=== PATIENT | male | born 1950 | race Caucasian/White ===

== ENCOUNTER 2016-08-02 15:06 | Inpatient (IN) | payer OTHER ==
--- NOTE | 2016-08-02 15:37 | EKG Report ---
Test Performed on : 08/02/2016 3:30:07 PM Test Reason : SOB Blood Pressure : / mmHG Vent. Rate : 096 BPM Atrial Rate : 096 BPM P-R Int : 180 ms QRS Dur : 096 ms QT Int : 382 ms P-R-T Axes : 051 -36 090 degrees QTc Int : 482 ms Normal sinus rhythm. Possible Left atrial enlargement Left axis deviation Incomplete right bundle branch block Left ventricular hypertrophy Nonspecific ST and T wave abnormality Prolonged QT Abnormal ECG No previous ECGs available Unconfirmed Result
[2016-08-02 15:53] LABS: MANUAL DIFF NEEDED? NO
[2016-08-02 15:55] LABS: BASO% 0.8 % (0.0-0.8); EOS# 0.33 X1000 (0.0-0.7); EOS% 3.3 % (0.0-10.0); HEMATOCRIT 38.5 % (42.0-52.0); HEMOGLOBIN 12.5 g/dL (14.0-18.0); LYMPH# 3.18 X1000 (1.2-3.4); LYMPH% 31.4 % (20.5-51.1); MCH 30.6 PG (27-31); MCHC 32.5 g/dL (33-37); MCV 94.1 FL (81-99); MONO# 0.91 X1000 (0.11-0.59); MPV 10.4 FL (7.4-10.4); NEUT% 55.5 % (42.2-75.2); PLT 322 X1000 (130-400); RBC 4.09 XMIL (4.7-6.1)
[2016-08-02] MEDS ORDERED: LASIX IV ONE (15:58)
--- NOTE | 2016-08-02 16:02 | ED EKG INTERP ---
EKG Interpretation - EKG Time of EKG reading by physician:: 15:30 EKG Read and Signed by:: Steven Flynn EKG Interpretation (*Must complete 3 of following elements*): Abnormal Rate: 86 Rhythm: NSR Wenden: left QRS: RBB (incomplete), LVH ST Wave: non-specific ST changes
[2016-08-02 16:03] LABS: INR 1.08; PROTIME 11.5 Seconds (9.2-11.7); PTT 27.6 Seconds (22.0-36.0)
--- NOTE | 2016-08-02 16:24 | CONSULTATION ---
DATE OF CONSULTATION: 08/02/2016 HISTORY OF PRESENT ILLNESS: Mr. Zac Bailey is a 65-year-old gentleman with Aortic stenosis mitral regurgitation, hypertension. He is followed up routinely at the [facility]. He has aortic stenosis, the exact dimensions not known at the present time. He underwent a transesophageal echocardiogram recently to evaluate for mitral regurgitation as well. He has an appointment to follow up and see the allocations clerk at the [facility] in [place] tomorrow. He was there yesterday with some suggestion of urinary tract infection and had to see a urologist there. He had hematuria, but otherwise he has had no further hematuria. He, for the last 3 days, says he has been having increasing shortness of breath and had some features of paroxysmal nocturnal dyspnea as well and has orthopnea. Complains of having dizziness, but no chest pain. Does not complain of any palpitations. There is no syncope. REVIEW OF SYSTEMS: A 14 point review of system was done with: GI System: There is no nausea, vomiting or diarrhea. There is no history of hematemesis or melena. Central nervous system: No focal weakness to suggest a costovertebral angle tenderness. System: There is no dysuria or hematuria. PAST MEDICAL HISTORY: 1. Bicupid Aortic valvewith Valve area of 1.2 S cm. Severe MR by EILEEN done at [facility] EF 50. Had cardiac cath done there , no records Followed up at the [facility]. Valve replacement is contemplated. 2. Recent urine infection. 3. Hypertension. MEDICATIONS: 1. Aspirin 81 mg a day. 2. Losartan 50 mg a day. ALLERGIES: He is not known to be allergic to any medications. HABITS: He does not smoke. There is no history of alcohol abuse. PHYSICAL EXAMINATION: Vital Signs: Blood pressure was 120/68. Cardiovascular system: Normal jugular venous pressure. First and second heart sounds heard. There is ejection systolic murmur. Respiratory system: Fine by inspiratory crepitations bilateral. Abdomen: Soft , nontender. There was no guarding or rigidity. Bowel sounds were heard. Central nervous system: Alert and was moving all 4 extremities. Extremities: Examination of his extremities revealed trace edema. DATA: Electrocardiogram revealed normal sinus rhythm. There was no ST changes to suggest ischemia. Nonspecific ST changes were noted. ASSESSMENT AND PLAN: 1. Mr. Zac Bailey is a 65-year-old gentleman with Bicuspid aortic stenosis, Severe MR on EILEEN per report, is followed up at the [facility] and has an appointment to see the [facility] allocations clerk for contemplation and planning of valve replacement. However, for the last 3 days he has been getting increasing shortness of breath and also paroxysmal nocturnal dyspnea , and orthopnea . On examination, he has features of heart failure. Given this, all his lab results are pending, we will put him on Lasix 40 mg intravenous once a day. We will give him Lasix 40 now. He takes Lasix 40 mg daily. 2. We will continue with his aspirin and losartan. 3. I called the [facility] there on diversion. We will touch base with the [facility] in the morning. In addition he also has an outpatient appointment to see the allocations clerk at the [facility] in the morning. The appointment is at 1 p.m. and, if he feels better and if lab values are unremarkable, we could potentially have him go there as an outpatient as well. However, I will contact the [facility] again to speak with the allocations clerk there in the morning. 4. We will also get an echocardiogram to asses cardiac / valvular function and rule out UT by cardiac enzymes. Thank you for the consult. MAYRA
[2016-08-02 16:34] LABS: CALCIUM 8.9 mg/dL (8.8-10.2); MAGNESIUM 2.3 mg/dL (1.5-2.7); POTASSIUM 3.6 mmol/L (3.5-5.1); TOTAL BILIRUBIN 1.03 mg/dL (0.20-1.00); TOTAL PROTEIN 6.6 g/dL (6.3-8.3)
--- NOTE | 2016-08-02 17:39 | Diag Imaging Result Document ---
PROCEDURE NAME: CHEST-PORTABLE - 08/02/2016 PORTABLE CHEST: COMPARISON: 07/16/2016. FINDINGS: There is stable mild cardiomegaly. There is mild prominence of central markings which appears to be chronic. There is no consolidation, pleural effusion, or pneumothorax identified. IMPRESSION: Stable mild cardiomegaly. No other evidence of acute disease.
[2016-08-02] MEDS ORDERED: ZOFRAN IV PRN (17:45)
[2016-08-02] MEDS ORDERED: TYLENOL PO PRN (17:45)
[2016-08-02 18:33] LABS: IRON SATURATION 24 %; TIBC 282 ug/dL; TOTAL IRON 69 ug/dL (53-167); UNBOUND IRON 213 ug/dL (112-346)
[2016-08-02 18:51] LABS: FERRITIN 317 ng/mL (30-400)
--- NOTE | 2016-08-02 18:54 | HISTORY AND PHYSICAL ---
PRIMARY CARE PROVIDER: Through the [facility]. PRIMARY UROLOGIST: Also through the [facility]. CARDIOLOGY: Through the [facility]. Has been seen by Dr. Haro. CHIEF COMPLAINT: Shortness of breath. HISTORY OF PRESENT ILLNESS: Mr. Zac Bailey is a 65-year-old male with a past medical history of congestive heart failure, aortic stenosis in need of an AVR with also now also mitral valve involvement, hypertension, obstructive sleep apnea. He actually has obstructive sleep apnea testing supposed to be scheduled this Saturday and a history of CKD. Mr. Bailey states that for the last 2-3 weeks he started having some nocturnal spells of smothering and then over the last 2-3 days primarily at night when he is sleeping, which he sleeps in an inclined bed, he is having spells of where he is smothering which wakes him up and he feels very short of breath. He has had more of a decrease in his energy. He has had a cough with essentially clear phlegm. Denies chest pain. Denies fever or chills. He does state that earlier this month he came for blood in his urine. He was seen by the [facility] yesterday and had received antibiotics prior to that for urinary tract infection. There is apparently a plan for sometime in August for them to do a urethral scope. Currently no blood in his urine that he can see. He denies burning during urination. He was seen by Dr. Haro in ER and plans were for Lasix for volume overload. Echocardiogram was performed at the bedside. Results are not reported yet. We will admit him to the medical floor. He is in no acute distress. His vital signs are stable. We will continue to follow. Apparently there is supposed to be a followup appointment with a gift wrapper at the [facility] in [place] tomorrow. Other symptoms that he had complained of was dizziness but no palpitations or syncope noted. Will continue to follow along. PAST MEDICAL HISTORY: Aortic stenosis, possibly now with mitral valve involvement, congestive heart failure, systolic in nature and chronic, hypertension, obstructive sleep apnea but does not wear a CPAP. Will be having retesting possibly this Saturday. Posttraumatic stress disorder. He has got a metal in his forehead that he received when he was in the [place] war. CKD stage 3. Hard of hearing. Wears bilateral hearing aids. SURGICAL HISTORY: Appendectomy, splenectomy, incisional hernia repair after his splenectomy, a circumcision and urethral clean out. SOCIAL HISTORY: He is a [place] vet x2. Denies tobacco abuse. He quit smoking in 1980. Denies alcohol or illicit drug use. FAMILY HISTORY: Grandfather had a CVA and father had cancer. REVIEW OF SYSTEMS: Fourteen point review of systems were complete and all were negative except for those mentioned in the above HPI. ALLERGIES: No known drug allergies. HOME MEDICATIONS: Aspirin enteric-coated 81 mg p.o. daily. Cozaar 25 mg p.o. daily. Lasix 40 mg p.o. daily. LABORATORY DATA: White blood cells 10,000, hemoglobin 12, hematocrit 38.6, platelet count 322,000. INR 1.08. Sodium 141, potassium 3.6. BUN 26, creatinine is 1.7. GFR 40. Glucose 151. Calcium 8.9, magnesium 2.3. Total bilirubin is 1.03. AST 17, ALT 18. CK is 66, troponin 0.035. ProBNP is 5969. Total protein 6.6, albumin 4.0. Urinalysis pending. IMAGING: Echocardiogram not resulted yet. EKG normal sinus rhythm, rate of 86 and a QTc of 482. PHYSICAL EXAMINATION: VITAL SIGNS: Temperature is 98.0 degrees, heart rate 91, respiratory rate 16, blood pressure 125/89, O2 saturation 96% on room air. Height 6 feet 1 inch tall, 241 pounds. BMI 31.8. GENERAL: Mr. Bailey is a 65-year-old male, in no acute distress. Some mild increased work of breathing with activity noted. HEENT: Atraumatic, normocephalic. Pupils equal, round, reactive to light. Extraocular movements are intact. NECK: No JVD or carotid bruits noted. CARDIOVASCULAR: S1, S2. Regular rate and rhythm. No rubs or gallops. There is a about a 2/6 systolic ejection murmur. PULMONARY: Clear to auscultation. Bilateral breath sounds with crackles in the bases and mild expiratory wheeze noted. No accessory muscle use. No work of breathing. GI: Soft, nontender, nondistended. Positive bowel sounds x4. NEUROLOGIC: Alert and oriented x4. Moves all extremities equally. EXTREMITIES: Trace edema in the lower ankles. +2 dorsalis and radial pulses. SKIN: Warm, dry, intact. ASSESSMENT AND PLAN: 1. Acute on chronic systolic congestive heart failure with volume overload, severe aortic stenosis and now with mitral valve involvement. Echo pending report. He received IV Lasix in the ER and will receive it twice daily. Dr. Haro is following. He is going to continue on Cozaar and aspirin. [facility]. Do daily weights. 2. Hypertension. Continue with Cozaar. 3. Obstructive sleep apnea. Apparently has an appointment on Saturday for a recheck of his obstructive sleep apnea. He does not wear BiPAP. 4. Recent hematuria. He is being seen by Urology and they plan on doing a urethral scope in August. Currently he denies hematuria. Urinalysis is pending. White blood cells normal. He has had a history where they have had to clean the urethra out. 5. CKD stage 3. We will do urine studies to rule out KAREEM. On the he had a 1.5 creatinine. It is up to 1.7 today. He is receiving Lasix so we will have to keep a close eye on that. BUN on the was 20 and today it is 26. 6. DVT prophylaxis. For now we will do sequential compression devices given his recent hematuria. He does have a mildly lower hemoglobin and hematocrit of 12.5 and 38.9 and back on the , it was 13.1 and. 39.2. 7. Anemia possibly from bladder or urethra. Given his recent history of hematuria we will do anemia labs. 8. Hyperglycemia. He denies history of diabetes. Will do a hemoglobin A1c in the morning. 9. Hyperbilirubinemia likely secondary to congestive heart failure. Will continue to trend. 10. GI prophylaxis. Proton pump inhibitor. Dictated by FORREST Adan for Sarthak Brambila MD
[2016-08-03] MEDS: LASIX IV SCH ×2 (05:53→17:28)
[2016-08-03] MEDS: PROTONIX PO SCH (06:10)
[2016-08-03 07:01] LABS: MANUAL DIFF NEEDED? NO
[2016-08-03 07:22] LABS: EOS# 0.38 X1000 (0.0-0.7); EOS% 3.8 % (0.0-10.0); HEMATOCRIT 39.9 % (42.0-52.0); HEMOGLOBIN 12.9 g/dL (14.0-18.0); IMM GRAN# 0.02 X1000 (0.0-0.04); IMM GRAN% 0.2 % (0.0-0.5); LYMPH# 2.86 X1000 (1.2-3.4); LYMPH% 28.7 % (20.5-51.1); MCH 30.5 PG (27-31); MCHC 32.3 g/dL (33-37); MCV 94.3 FL (81-99); MONO# 0.82 X1000 (0.11-0.59); MONO% 8.2 % (1.7-9.3); MPV 10.7 FL (7.4-10.4); NEUT% 58.1 % (42.2-75.2); PLT 319 X1000 (130-400); RBC 4.23 XMIL (4.7-6.1)
[2016-08-03 07:46] LABS: FREE T4 1.39 ng/dL (0.93-1.70)
--- NOTE | 2016-08-03 07:46 | EKG Report ---
Test Performed on : 08/03/2016 06:18:19 AM Test Reason : chf Blood Pressure : / mmHG Vent. Rate : 098 BPM Atrial Rate : 098 BPM P-R Int : 168 ms QRS Dur : 094 ms QT Int : 384 ms P-R-T Axes : 054 -41 061 degrees QTc Int : 490 ms Normal sinus rhythm. Possible Left atrial enlargement Left axis deviation Prolonged QT Abnormal ECG When compared with ECG of 02-AUG-2016 15:30, (Unconfirmed) Incomplete right bundle branch block is no longer present Nonspecific T wave abnormality, improved in Lateral leads Confirmed by Star Hwang DO ([id number]) on 08/05/2016 4:14:00 PM
[2016-08-03 07:47] LABS: CALCIUM 9.3 mg/dL (8.8-10.2); HEMOGLOBIN A1C 5.2 % (4.8-6.0); MAGNESIUM 2.3 mg/dL (1.5-2.7); POTASSIUM 4.1 mmol/L (3.5-5.1)
--- NOTE | 2016-08-03 07:54 | Diag Imaging Result Document ---
PROCEDURE NAME: CHEST-2 VIEWS - 08/03/2016 2 VIEWS OF THE CHEST: FINDINGS: There is pleural fluid particularly on the right. There is mild interstitial pulmonary edema. The left ventricle appears to be enlarged. IMPRESSION: Mild pulmonary edema and pleural effusions.
[2016-08-03] MEDS: ASPIRIN EC PO SCH (08:55)
[2016-08-03] MEDS: COZAAR PO SCH (08:55)
--- NOTE | 2016-08-03 15:32 | ECHO REPORT ---
ORDER DATE: 08/02/2016 ECHOCARDIOGRAPHIC MEASUREMENTS: 1. Interventricular septum 1.4 2. Left ventricular posterior wall 1.4, diastolic diameter 6, left atrium 6, aorta 3.4. 3. There is moderate to severe left atrial enlargement. 4. Left ventricle is dilated with reduced systolic function. Estimated ejection fraction of 30%- 35%. 5. Aortic valve leaflets were sclerosed, calcified, all leaflets not well visualized. 6. There is mitral annular calcification. 7. Tricuspid valve is normal. 8. There is severe eccentric mitral regurgitation. 9. There is mild tricuspid regurgitation. Peak velocity across the tricuspid valve was 3.3 m/sec. Pulmonary artery systolic pressure of 58-60 mmHg. There is pulmonary arterial hypertension. 10. Peak velocity across the aortic valve was 4 m/sec with a peak gradient of 64 mmHg, mean gradient of 40 mmHg. Aortic valve area by planimetry was 0.9 cm2. There is severe aortic stenosis associated with mild aortic regurgitation. 11. There is no pericardial effusion or obvious intracardiac mass or thrombus seen. 12. There is mild right ventricular dilatation.
--- NOTE | 2016-08-03 17:40 | PROGRESS NOTE ---
DATE: 08/03/2016 SUBJECTIVE: Patient is feeling fine. Definitely less shortness of breath. OBJECTIVE: Vitals: Temperature 97.9 degrees, heart rate 87, respiratory rate 18, blood pressure 121/74, O2 saturation 100% on room air. General Examination: This is a 65-year-old male lying in bed in no acute distress. HEENT: Head is normocephalic, atraumatic. Anicteric sclerae and pale conjunctivae. Mucous membranes moist. Neck: Supple. No JVD noted. No carotid bruits. No lymphadenopathy. No thyromegaly. Cardiovascular: S1, S2 heard. No murmurs, gallops, rubs. Regular rate and rhythm. Respiratory: Few crackles in both bases. Patient not using any accessory muscles or having work of breathing. Abdomen: Soft, nontender to palpation. Bowel sounds present. No organomegaly. Extremities: No clubbing, cyanosis, or edema. Peripheral pulses present in both legs. Neurological: Patient is alert and oriented x3. Able to move 4 extremities. Cranial nerves 2-12 grossly normal. LABORATORY DATA: White cell count 9.99, hemoglobin 12.9, hematocrit 39.9, platelets 319,000. BMP unremarkable except BUN 25, creatinine 1.7. ASSESSMENT AND PLAN: 1. Acute on chronic systolic heart failure. 2. Severe aortic stenosis with bivalvular aortic valve. 3. Severe mitral regurgitation. 4. Hypertension. 5. Obstructive sleep apnea. 6. Chronic kidney disease stage 3. 7. Anemia of chronic disease. 8. Deep vein thrombosis prophylaxis. 9. Hyperbilirubinemia. PLAN: At this time this patient is doing fine. Definitely he has developed acute on chronic systolic congestive heart failure secondary to severe aortic stenosis that is being going on for at least a couple years that he had this problem and waiting for a valve replacement. In this case we are going to see this patient in the hospital. The basic plan is to try to transfer this patient to [facility] to have this problem taken care of there. In the meantime will continue with Lasix and clinically this patient is improving. Also blood pressure is under control. This point will continue with the same management.
[2016-08-04] MEDS: PROTONIX PO SCH (06:09)
[2016-08-04 06:47] LABS: CALCIUM 8.6 mg/dL (8.8-10.2); MAGNESIUM 2.1 mg/dL (1.5-2.7); POTASSIUM 3.7 mmol/L (3.5-5.1)
[2016-08-04] MEDS: COZAAR PO SCH (08:39)
[2016-08-04] MEDS: LASIX IV SCH (08:39)
[2016-08-04] MEDS: ASPIRIN EC PO SCH (08:39)
[2016-08-04 11:03] LABS: URINE CULTURE NEEDED? NO; URINE MICRO REVIEW NEEDED? NO; URINE SOURCE CLEAN CATCH
[2016-08-04 11:16] LABS: UR CREAT RANDOM 30.6 mg/dL (14-26)
[2016-08-04 11:20] LABS: BILIRUBIN URINE NEGATIVE (NEGATIVE); BLOOD URINE NEGATIVE (NEGATIVE); COLOR YELLOW; GLUCOSE URINE NEGATIVE (NEGATIVE); LEUKOCYTES URINE NEGATIVE (NEGATIVE); NITRITE URINE NEGATIVE (NEGATIVE); PROTEIN URINE NEGATIVE (NEGATIVE); SP GRAVITY URINE 1.007; TURBIDITY URINE CLEAR (CLEAR); UROBILINOGEN URINE NORMAL (NORMAL)
[2016-08-04 11:22] LABS: UR EPITHELIAL CELLS <10 /HPF (<10); URINE BACTERIA NEGATIVE /HPF; URINE RBC <10 /HPF (<10); URINE WBC <10 /HPF (<10)
--- NOTE | 2016-08-04 12:15 | PROGRESS NOTE ---
DATE: 08/04/2016 SUBJECTIVE: Mr. Bailey reports he is doing well today. He has been more active and is less short of breath. He does have some discomfort I believe in his left ankle that is consistent with previous episodes of gout. PHYSICAL EXAMINATION: He is afebrile. His heart rates seem to be predominantly in the 80s to 90s. His blood pressures are in the 110s to 120 systolic with diastolics in the 60s to 80s. His weight documented today was 241 pounds 11 ounces. He had a 245 pounds and 11 ounces on the 5th. His I's and O's are -2.7 L for the course of the hospitalization. However he has very little intake documented on those studies. General: He is in no acute distress. He is a very pleasant white male. He has some mild complaints of left ankle pain. Cardiovascular: He sounds to be in a regular rate and rhythm. He has a 2/6 systolic murmur consistent with aortic stenosis. He has no lower extremity edema. He has warm and well perfused lower extremities. Chest: Exam sounds relatively clear. No increased work of breathing. Abdomen: Soft, nontender, nondistended. He has no obvious organomegaly. Skin Exam: Warm and dry throughout. PERTINENT LABORATORY DATA: His telemetry has been unremarkable showing sinus rhythm with occasional PVCs. His sodium today is 140 with a potassium of 3.7, his BUN is 28, creatinine 1.7 which is stable from yesterday and his magnesium is 2.1. His proBNP yesterday was 5918 with an admission on the of 5969. ASSESSMENT: 1. Systolic heart failure. 2. Severe aortic stenosis. 3. Severe mitral regurgitation. 4. Likely gouty arthritis flare. PLAN: I will initiate some colchicine today. He can take up to b.i.d. p.r.n. Review of his echo shows dilatation of the LV and severe dilatation of the left atrium and mild bordering on moderate LVH. His EF is 30-35%. He has a peak gradient across the valve of 64 with a mean of 40 across the aortic valve with planimetry of 0.9. He also has a suggestion of severe eccentric mitral regurgitation. I have placed a call into the [facility] to speak with the on-call detective chief. [facility] but [facility] is not a bed diversion, it is apparently associated with unsafe roads in the [place] area. Hopefully, we can get the patient transferred to an appropriate facility for definitive planning on addressing his mitral and aortic valves. We will continue with diuresis. I have instructed the patient on a 1.5 L fluid restriction. I will hold off any adjustments in his medications presently because he seems hemodynamically titrated.
[2016-08-04] MEDS: SOLU-MEDROL IV SCH (14:00)
[2016-08-04] MEDS: COLCRYS PO PRN ×2 (14:00→21:09)
--- NOTE | 2016-08-04 14:26 | PROGRESS NOTE ---
DATE: 08/04/2016 SUBJECTIVE: Patient reports moderate pain around the 1st toe in the left foot. He thinks that this because he had similar symptoms before. He is definitely less short of breath. OBJECTIVE: Vital Signs: Temperature 97.6 degrees, heart rate 89, respiratory rate 16, blood pressure 120/60, O2 saturation 98% on room air. General Examination: This is a 65-year-old male lying in bed in no acute distress. HEENT: Head is normocephalic, atraumatic. Neck: Supple. No JVD. No carotid bruits. Cardiovascular: S1, S2 heard with systolic murmur in the aortic area 3/6 in intensity. No gallops or rubs. Respiratory: Clear bilaterally to auscultation. No work of breathing or using accessory muscles. Abdomen: Soft, nontender to palpation. Bowel sounds present. No organomegaly. Extremities: No clubbing, cyanosis, or edema. Peripheral pulses present in both legs. Neurological: Patient alert, oriented x3. Able to move 4 extremities. Cranial nerves 2-12 grossly normal. LABORATORY DATA: BMP is unremarkable except creatinine 1.7. ASSESSMENT AND PLAN: 1. Acute on chronic systolic heart failure. 2. Severe aortic stenosis with bibasilar aortic valve, severe mitral regurgitation. 3. Hypertension. 4. Obstructive sleep apnea. 5. Chronic kidney disease stage 3. 6. Anemia chronic disease. 7. Possible gouty attack. 8. Hyperbilirubinemia. PLAN: 1. At this time we are going to continue with the same management in terms of diuresis. Patient responded to therapy. Less shortness of breath. We are basically trying to transfer this patient to [facility] because the ultimate answer to his problem is to have double valve replacement. 2. For gout attack considering his renal dysfunction we are going to use Solu-Medrol 40 mg IV q.12 hours and he is already taking Protonix IV 40 mg daily. 3. For hypertension and anemia chronic disease we are going to continue basically the same management.
[2016-08-05] MEDS: SOLU-MEDROL IV SCH ×2 (02:12→12:08)
[2016-08-05] MEDS: PROTONIX PO SCH (06:49)
[2016-08-05 07:26] LABS: CALCIUM 9.2 mg/dL (8.8-10.2)
[2016-08-05] MEDS: COZAAR PO SCH (08:41)
[2016-08-05] MEDS: ASPIRIN EC PO SCH (08:41)
[2016-08-05] MEDS: LASIX IV SCH (08:41)
[2016-08-05] MEDS: COLCRYS PO PRN (08:41)
--- NOTE | 2016-08-05 14:27 | PROGRESS NOTE ---
DATE: 08/05/2016 SUBJECTIVE: Ms. Bailey reports he feels a little bit better today regarding his gout pain in his ankle. He has been ambulatory on the floor. PHYSICAL EXAMINATION: Vital signs: He is afebrile. His heart rate is 76 this morning with a blood pressure of 109/74. Generally: He is in no acute distress. Cardiovascular: He sounds to be in a regular rate and rhythm. I do not hear any significant murmurs other than a very faint systolic murmur somewhat throughout the precordium. He has no lower extremity edema. He has warm and well perfused extremities. Chest: Exam sounds relatively clear to auscultation bilaterally. He has no increased work of breathing. Abdomen: Soft, nontender. DATA: His current telemetry has shown sinus rhythm. He has occasional PACs and PVCs during the course of the stay. His sodium is 141, potassium 4, BUN 28, creatinine 1.5; this is down from 28 and 1.7. His proBNP today was 4,143 which is down from 5,969 on admit. ASSESSMENT: 1. Severe aortic stenosis. 2. Acute systolic heart failure. 3. Severe mitral regurgitation. PLAN: The patient continues to diurese and seems to be doing well. His gout has responded to colchicine. Otherwise he continues to do well. We are working on arranging transfer to the [facility] in [place] to continue to try to obtain a definitive evaluation for interventions on his aortic and mitral valves.
--- NOTE | 2016-08-05 14:40 | PROGRESS NOTE ---
DATE: 08/05/2016 SUBJECTIVE: Patient reports that pain in the 1st toe left foot is getting definitely much better. He denies any chest pain or shortness of breath. OBJECTIVE: Vital Signs: Temperature 97.6 degrees, heart rate 76, respiratory rate 20, blood pressure 109/74, O2 saturation 98% on room air. General Examination: This is a 65-year-old male lying in bed in no acute distress. HEENT: Head is normocephalic, atraumatic. Anicteric sclerae and pale conjunctivae. Neck: Supple. No JVD noted. No carotid bruits. No lymphadenopathy. Cardiovascular: S1, S2 heard with systolic murmur in the aortic area 3/6 intensity radiating to the neck. No gallops or rubs. Respiratory: Clear bilaterally to auscultation. No work of breathing or using accessory muscles. Abdomen: Soft, nontender to palpation. Bowel sounds present. No organomegaly. Extremities: No clubbing, cyanosis, or edema. Peripheral pulses present in both legs. Neurological: Patient alert, oriented x3. Able to move 4 extremities. Cranial nerves 2-12 grossly normal. LABORATORY DATA: The BMP shows creatinine 1.5 and BUN 28, rest of the exam remarkable. ASSESSMENT AND PLAN: 1. Acute on chronic systolic heart failure. 2. Severe aortic stenosis. 3. Severe mitral regurgitation. 4. Hypertension. 5. Obstructive sleep apnea. 6. Chronic kidney disease stage 3. 7. Anemia chronic disease. 8. First left toe gouty attack. PLAN: 1. At this time clinically the patient is doing good. The patient is still receiving furosemide for this acute on chronic systolic heart failure and patient is responding very well. We are still trying to send this patient to [facility] but apparently there is no beds. Will keep trying to transfer him over there. 2. For gouty attack, patient is on Solu-Medrol 40 q.12 and Protonix IV daily 40 mg. At this point will continue with the same management. We would prefer to not provide any colchicine considering his renal dysfunction. 3. For hypertension will continue basically with the same management.
--- NOTE | 2016-08-05 15:30 | DISCHARGE SUMMARY ---
ADMISSION DATE: 08/02/2016 DISCHARGE DATE: 08/06/2016 DISCHARGE DIAGNOSES: 1. Severe aortic stenosis with bicuspid aortic valve. 2. Severe mitral regurgitation. 3. Congestive heart failure secondary to severe aortic stenosis with bicuspid aortic valve. 4. Hypertension. 5. Gouty attack, under treatment. 6. Obstructive sleep apnea. 7. Chronic kidney disease, stage 3. CONSULTATIONS: Kashmir Haro MD from Cardiology. HOSPITAL COURSE: This is a 65-year-old male with past medical history of congestive heart failure secondary to severe bicuspid aortic stenosis in need of valvular replacement with now also mitral valve involvement, hypertension, and obstructive sleep apnea. The patient reports that he was noticing some nocturnal spells in which he got short of breath. He reports feeling and tired. He also was having a cough with some clear phlegm. He denied any chest pain, fever, or chills. The patient has been seen by Dr. Haro in the ER and he recommended to admit this patient to the hospital. HOSPITAL COURSE: During his hospitalization here he was started on aggressive diuretic treatment and he responded to the therapy. Upon my examination, he is feeling fine during the last previous days. Our general plan is to try to transfer this patient to the [facility] in [place] to get a cardiac surgery done on him. Unfortunately, the hospital has been on diversion and we expect to have this hospital accept this patient tomorrow or the day after. During his hospitalization here he developed gouty attack with pain in the 1st toe of the left foot. So, he was given Solu-Medrol 40 mg IV q.12 h. and since then, he is feeling fine. At this point, the patient is stable and waiting for a room in the [facility]. The patient will be transferred in stable condition. DISCHARGE PHYSICAL EXAMINATION: Vital Signs: Temperature 97.6 degrees, heart rate 74, respiratory rate 20, blood pressure 117/61, O2 saturation 98% on room air. General: This is a 65-year-old male, lying in bed, in no acute distress. HEENT: Head is normocephalic, atraumatic. Anicteric sclerae and pale conjunctivae. Mucous membranes moist. Pupils equal, round, reactive to light and accommodation. Neck: Supple. No JVD noted. No carotid bruit noted. No lymphadenopathy. No thyromegaly. Cardiovascular: S1, S2 heard with ejection murmur in the aortic area 3/6 intensity that radiates to the neck. Respiratory: Clear bilaterally to auscultation. No work of breathing or using accessory muscles. Abdomen: Soft , nontender to palpation. Bowel sounds present. No organomegaly. Extremities: First toe of left foot is definitely less swollen and painful. Lower extremity peripheral pulses present in both legs. Neurological: Patient is alert and oriented x3. Able to move 4 extremities. Cranial nerves II through XII grossly normal. DISCHARGE DISPOSITION: Currently we are trying to send this patient to [facility] in [place] but also could be sent to [facility]. [facility]
[2016-08-05 16:27] VITALS: BP 121/79
== END 2016-08-05 17:09 | disposition short-term general hospital (02) | DRG 293 ==
LOC: ED 15:06 → 3N 17:27
PROVIDERS: ATTEND Internal Medicine
DX: I50.23 Acute on chronic systolic (congestive) heart failure (principal); N18.3 Chronic kidney disease, stage 3 (moderate); I12.9 Hypertensive chronic kidney disease with stage 1 through stage 4 chronic kidney disease, or unspecified chronic kidney disease; I08.0 Rheumatic disorders of both mitral and aortic valves; R73.9 Hyperglycemia, unspecified; M10.9 Gout, unspecified; G47.33 Obstructive sleep apnea (adult) (pediatric); D63.8 Anemia in other chronic diseases classified elsewhere; H91.93 Unspecified hearing loss, bilateral; F43.10 Post-traumatic stress disorder, unspecified; Z79.899 Other long term (current) drug therapy; Z79.82 Long term (current) use of aspirin; Z90.81 Acquired absence of spleen; Z87.891 Personal history of nicotine dependence; Z82.3 Family history of stroke; Z80.9 Family history of malignant neoplasm, unspecified
CPT/HCPCS: 36415; 71010; 71020; 80048; 80053; 80061; 81001; 82550; 82570; 82607; 82728; 82746; 83036; 83540; 83550; 83721; 83735; 83880; 83935; 84153; 84300; 84439; 84443; 84484; 85025; 85379; 85610; 85730; 93005; 93010; 93306; 96374; J1940; J2920

== ENCOUNTER 2019-11-11 10:03 | Inpatient (IN) ==
[2019-11-11] MEDS ORDERED: LASIX IV ONE ×2 (10:20→15:38)
--- NOTE | 2019-11-11 10:26 | PROVIDER DOCUMENTATION ---
HPI-Respiratory General - General Stated Complaint: FUILD BUILD UP,CHF,COUGHING Time Seen by Provider: 11/11/19 10:12 Source: patient, family Allergies/Adverse Reactions: Patient Allergies Allergy/AdvReac Type Severity Reaction Status Date / Time No Known Allergies Allergy Verified 08/02/16 15:47 Home Medications: Home Medication List Medication Instructions Recorded Confirmed Last Taken Type Aspirin [Aspirin EC] 81 mg PO DAILY 07/16/16 11/11/19 08/02/16 08:00 History Allopurinol 100 mg PO 4XDAY 11/11/19 11/11/19 Unknown History Apixaban [Eliquis] 5 mg PO BID 11/11/19 11/11/19 Unknown History Carvedilol [Coreg] 6.25 mg PO BID 11/11/19 11/11/19 Unknown History Doxazosin [Cardura] 2 mg PO DAILY 11/11/19 11/11/19 Unknown History Torsemide 20 mg PO BID 11/11/19 11/11/19 Unknown History - History of Present Illness-Resp Nature of Presenting Problem: Patient is a 68 yom who presents to the ED with his daughter who reports worsening SOB with 6 pound weight gain x 3 days. Hx of recent open heart sx with subsequent pacemaker placement after surgery due to A. Fib. (in August) at [facility]. Has had a mild productive cough with clear sputum as well. Denies chest pain, fever, or any other complaints. Pt non-toxic. Review of Systems - Adult - REVIEW OF SYSTEMS - ADULT Constitutional: reports: no symptoms reported Eyes: reports: no symptoms reported Ears, Nose, Mouth & Throat: reports: no symptoms reported Cardiovascular: reports: see HPI Respiratory: reports: see HPI Gastrointestinal: reports: no symptoms reported Genitourinary: reports: no symptoms reported Musculoskeletal: reports: no symptoms reported Integumentary: reports: no symptoms reported Neurological: reports: no symptoms reported Psychiatric: reports: no symptoms reported Endocrine: reports: no symptoms reported Hematologic/Lymphatic: reports: no symptoms reported Allergic/Immunologic: reports: no symptoms reported All Other Systems: Reviewed and Negative Past History - Adult - PAST MEDICAL HISTORY-ADULT Review of Records: reports: Old Records Reviewed, Nursing Assessment Review, Medications Reviewed, Social history reviewed & non-contributory. Major Childhood Illnesses: reports: denies history Cardiovascular: reports: CHF, HTN Respiratory: reports: sleep apnea Gastrointestinal: reports: denies history Obstetrical/Gynecological: reports: denies history Genitourinary: reports: denies history Musculoskeletal: reports: denies history Neurological: reports: denies history Psychiatric: reports: ptsd Endocrine/Immune: reports: denies history Other Conditions: reports: denies history - PRIOR SURGERIES/PROCEDURES Surgical/Procedure History: reports: recent surgery - IMMUNIZATION STATUS Childhood Immunizations: See Nurse Assessment Flu Vaccine: See Nurse Assessment - FAMILY HISTORY Family History: reviewed, not pertinent - SOCIAL HISTORY Smoking: non-smoker Physical Exam-General - PHYSICAL EXAM-ADULT Initial Vital Signs Reviewed: Yes - CONSTITUTIONAL General Appearance: alert, no apparent distress. negative: lethargic, slow to respond - EYES Eyes: PERRL/EOMI - HEAD, EARS, NOSE, MOUTH & THROAT HENMT: normocephalic/atraumatic - NECK Neck: full range of motion, supple, normal inspection - RESPIRATORY Respiratory: chest non-tender, no pleuratic chest pain, no respiratory distress, no accessory muscle use, decreased breath sounds - CARDIOVASCULAR Cardiovascular: regular rate, rhythm, JVD, other (2+ pitting edema noted to bilateral lower extremities) - GASTROINTESTINAL (ABDOMEN) Abdominal Exam: normal bowel sounds, soft, other (obese) - MUSCULOSKELETAL Back Exam: normal inspection Extremity: normal range of motion, non-tender - SKIN Integumentary: normal color, warm/dry. negative: cyanosis, diaphoresis, jaundice, mottled, pallor - NEUROLOGIC Neurologic: grossly normal, no motor/sensory deficits - PSYCHIATRIC Psych/Mental Status: normal mood/affect, normal thought content, normal thought process, oriented x 3 - HEART Score HEART Score: History: Moderately Suspicious HEART Score: ECG: Non-Specific Repolarization Disturbance/LBBB/PM HEART Score: Age: > or = 65 Years HEART Score: Risk Factors for Atherosclerotic Disease: > or = 3 Risk Factors or History of Atherosclerotic Disease HEART Score: Troponin: < or = Normal Limit Total HEART Score:: 6 Progress - PLAN OF CARE/RESULTS Progress/Plan/Lab Results: Vital Signs - 8 hr 11/11/19 10:52 Temperature 98.3 F Pulse Rate 85 Respiratory Rate 22 Blood Pressure 139/70 O2 Sat by Pulse Oximetry 97 Laboratory Results - last 24 hr 11/11/19 11/11/19 11/11/19 10:43 10:43 10:43 WBC 10.18 RBC 3.84 L Hgb 11.6 L Hct 37.7 L MCV 98.2 MCH 30.2 MCHC 30.8 L RDW Std Deviation 14.7 H Plt Count 303 MPV 10.9 H Immature Gran % (Auto) 0.2 Neut % (Auto) 62.1 Lymph % (Auto) 21.7 Walsh % (Auto) 10.2 H Eos % (Auto) 4.3 Baso % (Auto) 1.5 H Immature Gran # (Auto) 0.02 Neut # (Auto) 6.32 Lymph # (Auto) 2.21 Walsh # (Auto) 1.04 H Eos # (Auto) 0.44 Baso # (Auto) 0.15 PT INR PTT (Actin FS) Sodium Potassium Chloride Carbon Dioxide Anion Gap BUN Creatinine Estimated GFR/1.73 m2 BUN/Creatinine Ratio Glucose Calculated Osmolality Calcium Magnesium Total Bilirubin AST ALT Alkaline Phosphatase Creatine Kinase 73 Troponin T High Sens 44 H Elu-K-Utevxlavkjs Pept Total Protein Albumin Globulin Albumin/Globulin Ratio Plasma Lactate 11/11/19 11/11/19 11/11/19 10:43 10:49 10:49 WBC RBC Hgb Hct MCV MCH MCHC RDW Std Deviation Plt Count MPV Immature Gran % (Auto) Neut % (Auto) Lymph % (Auto) Walsh % (Auto) Eos % (Auto) Baso % (Auto) Immature Gran # (Auto) Neut # (Auto) Lymph # (Auto) Walsh # (Auto) Eos # (Auto) Baso # (Auto) PT INR PTT (Actin FS) Sodium 139 Potassium 4.0 Chloride 98 Carbon Dioxide 27 Anion Gap 14 BUN 28 H Creatinine 1.7 H Estimated GFR/1.73 m2 40 BUN/Creatinine Ratio 16 Glucose 133 H Calculated Osmolality 285 Calcium 9.1 Magnesium 2.2 Total Bilirubin 1.08 H AST 29 ALT 20 Alkaline Phosphatase 109 Creatine Kinase Troponin T High Sens Okv-T-Hdfunevjesg Pept 8233 H Total Protein 7.2 Albumin 3.6 Globulin 3.6 Albumin/Globulin Ratio 1.0 Plasma Lactate 1.7 11/11/19 10:49 WBC RBC Hgb Hct MCV MCH MCHC RDW Std Deviation Plt Count MPV Immature Gran % (Auto) Neut % (Auto) Lymph % (Auto) Walsh % (Auto) Eos % (Auto) Baso % (Auto) Immature Gran # (Auto) Neut # (Auto) Lymph # (Auto) Walsh # (Auto) Eos # (Auto) Baso # (Auto) PT 17.9 H INR 1.45 PTT (Actin FS) 26.9 Sodium Potassium Chloride Carbon Dioxide Anion Gap BUN Creatinine Estimated GFR/1.73 m2 BUN/Creatinine Ratio Glucose Calculated Osmolality Calcium Magnesium Total Bilirubin AST ALT Alkaline Phosphatase Creatine Kinase Troponin T High Sens Apu-G-Njrjnbvkqel Pept Total Protein Albumin Globulin Albumin/Globulin Ratio Plasma Lactate Orders Category Date Time Status Cardiac Monitoring DIRECTED Care 11/11/19 10:20 Active Isolation [Isolation Precautions Setup] NOW Care 11/11/19 11:45 Active NEWS Score 2-4:Order NEWS Lactate Series NOW Care 11/11/19 10:57 Active Nursing- MD Consult Request ROUTINE Care 11/11/19 10:58 Active Saline Loc NOW Care 11/11/19 10:20 Active MD [Physician/Provider Consults] Routine Cons 11/11/19 10:57 Ordered CHEST-1 VIEW [RAD] Stat Exams 11/11/19 10:23 Completed CBC WITH DIFF [HEME] Stat Lab 11/11/19 10:43 Completed CK PROFILE [SP CHEM] Stat Lab 11/11/19 10:43 Completed COMPREHENSIVE METABOLIC PANEL [CHEM] Stat Lab 11/11/19 10:49 Completed LACTATE, PLASMA [CHEM] Lab 11/11/19 14:00 Uncollected LACTATE, PLASMA [CHEM] Lab 11/11/19 17:00 Uncollected LACTATE, PLASMA [CHEM] Q3H Lab 11/11/19 10:43 Completed MAGNESIUM [CHEM] Stat Lab 11/11/19 10:49 Completed PRO B-NATRIURETIC PEPTIDE Stat Lab 11/11/19 10:49 Completed PROTIME WITH INR [COAG] Stat Lab 11/11/19 10:49 Completed PTT [COAG] Stat Lab 11/11/19 10:49 Completed TROPONIN T HIGH SENSITIVITY Stat Lab 11/11/19 10:43 Completed TROPONIN T HIGH SENSITIVITY Timed Lab 11/11/19 12:45 Uncollected Furosemide [Lasix] Med 11/11/19 10:20 Discontinued 60 mg IV NOW ONE EKG [EKG] Routine Ther 11/11/19 12:45 Ordered EKG [EKG] Stat Ther 11/11/19 10:19 Ordered Result Diagrams: 11/11/19 10:43 11/11/19 10:49 - REASSESSMENT Reassessment #1 Time Reassessed: 12:00 Status: other (Admitting [facility] paged. UOP approx. 100 cc since Lasix. Pt in agreement with plan to admit. Pt admitted to [facility] in stable condition.) - EKG 1 Time of EKG reading by physician:: 10:15 EKG Read and Signed by:: Leon Austin EKG Interpretation (*Must complete 3 of following elements*): Abnormal Rate: 86 Rhythm: paced rhythm ST Wave: normal - XRAY 1 XRAY Study: Chest ([facility] - [address], [address], [place] [address] [facility] - [address] [place] [address] Department of Imaging Patient: IRIS HERNANDEZ Date: 11/11/19#: [id number] : 9ADM Status: REG [facility]#: [id number] Age/Sex: 68/MRoom/Bed: Loc: ED Ordering Physician: Heike Thomas Family Physician: None,PCP Reason for Procedure: SOB, edema Signed EXAM: CHEST-1 VIEW 11/11/2019 HISTORY: SOB, edema TECHNIQUE: AP portable upright at 1049 COMMENT: There is alveolar opacity in the left lower lobe partially obscuring the hemidiaphragm and left heart border. There is blunting of the costophrenic angles bilaterally and ill-defined opacity is present in the right costophrenic angle. These findings were not present on 08/03/2016. There are sternotomy wires and there is a right sided pacemaker. There are aortic and mitral valve prostheses. None of these were present previously. IMPRESSION: Pulmonary edema and pleural effusions worse on the left than the right. Elec tronically signed by Joao Garcia 11/11/2019 11:06 AM 11/11/19 1106 Interpreting Physician: Joao Garcia MD Dictated Date/Time: 11/11/19 1105 cc: Heike Thomas; None,PCP) - CONSULTS/PCP/HOSPITALIST Notification #1 *Consult/PCP/Hospitalist*: Dr. Haro Time Discussed: 10:31 Reason/Comments: CHF, recent open heart sx and pacemaker placement Consult Disposition: Will see in ED (Dr. Haro saw and evaluated pt in the ED.) #2 Consult: ANGELIA Abraham COMPUTER SUPPORT TECHNICIAN Time Discussed: 12:38 Reason/Comments: admit- CHF exacerbation Consult Disposition: Will see in ED (Dr. Austin spoke with Leigh who accepted admission.), Admit Departure - Departure Date of Disposition Decision: 11/11/19 Time of Disposition Decision: 12:00 DIAGNOSIS: SOB (shortness of breath), Renal insufficiency Pulmonary edema Qualifiers: Chronicity: acute Qualified Code(s): J81.0 - Acute pulmonary edema CHF (congestive heart failure) Qualifiers: Heart failure type: unspecified Heart failure chronicity: acute on chronic Qualified Code(s): I50.9 - Heart failure, unspecified Disposition: ADMITTED INPATIENT 09 Certified Medical Emergency: Emergent Condition: Stable Referrals and Follow-Ups: None,PCP [Primary Care Provider] - - Critical Care Note This patient required my direct & personal management of CC.: No Attestation - Physician/ ROMAIN Attestation Patient care was provided by Advanced Practice Provider:: Yes Advanced Practice Provider:: Heike Thomas Advanced Practice Provider documentation review:: The Mid-level provider documentation, treatment plan and medical decision making was reviewed by the physician who agrees with all treatment and medical decision making by the MLP. The physician spent face to face time with patient:: Yes (Dr. Austin) Advanced Practice Provider documentation review:: Supervising physician onsite and consulted in the evaluation and care of this patient. The physician did have a face to face encounter with the patient.
[2019-11-11 11:06] LABS: BASO# 0.15 X1000 (0.0-0.2); BASO% 1.5 % (0.0-0.8); EOS# 0.44 X1000 (0.0-0.7); EOS% 4.3 % (0.0-10.0); HEMATOCRIT 37.7 % (42.0-52.0); HEMOGLOBIN 11.6 g/dL (14.0-18.0); IMM GRAN# 0.02 X1000 (0.0-0.04); IMM GRAN% 0.2 % (0.0-0.5); LYMPH# 2.21 X1000 (1.2-3.4); LYMPH% 21.7 % (20.5-51.1); MCH 30.2 PG (27-31); MCHC 30.8 g/dL (33-37); MCV 98.2 FL (81-99); MONO# 1.04 X1000 (0.11-0.59); MONO% 10.2 % (1.7-9.3); MPV 10.9 FL (7.4-10.4); NEUT# 6.32 X1000 (1.4-6.5); NEUT% 62.1 % (42.2-75.2); PLT 303 X1000 (130-400); RBC 3.84 XMIL (4.7-6.1); RDW 14.7 % (11.5-14.5); WBC 10.18 X1000 (4.8-10.8)
[2019-11-11 11:09] LABS: INR 1.45; PROTIME 17.9 Seconds (11.0-16.0); PTT 26.9 Seconds (22.3-41.8)
--- NOTE | 2019-11-11 11:09 | Diag Imaging Result Doc PS360 ---
EXAM: CHEST-1 VIEW 11/11/2019 HISTORY: SOB, edema TECHNIQUE: AP portable upright at 1049 COMMENT: There is alveolar opacity in the left lower lobe partially obscuring the hemidiaphragm and left heart border. There is blunting of the costophrenic angles bilaterally and ill-defined opacity is present in the right costophrenic angle. These findings were not present on 08/03/2016. There are sternotomy wires and there is a right sided pacemaker. There are aortic and mitral valve prostheses. None of these were present previously. IMPRESSION: Pulmonary edema and pleural effusions worse on the left than the right. Electronically signed by Joao Garcia 11/11/2019 11:06 AM
--- NOTE | 2019-11-11 11:24 | CARDIOLOGY CONSULTATION ---
DATE: 11/11/2019 HISTORY OF PRESENT ILLNESS: Mr. Bailey is a 68-year-old, gentleman who, for the last 3 days, has noticed increasing shortness of breath with pedal edema. Became short of breath and orthopneic. Came to the emergency room. He is admitted with heart failure. In the interim, he was on Lasix 40 mg a day prior to this. This was changed to torsemide 20 mg to be taken alternate days about a week ago and since this change, his weight has gone up and he has become more symptomatic. He was extremely orthopneic. Denies any chest pain. There are no palpitations or syncope. There is no history of fevers or chills. He has a productive cough which has been present since his surgery and has worsened in the last 2 weeks. He underwent surgery for valve replacement as listed below. REVIEW OF SYSTEMS: A 14-point review of systems was done. GI System: There is no history of nausea, vomiting, or diarrhea. Respiratory System: There is no history of hemoptysis. There is no history of hematemesis or melena. Central Nervous System: No focal weakness to suggest a CVA or TIA. Genitourinary System. There is no dysuria or hematuria. HOME MEDICATION LIST: Allopurinol 400 mg daily, Coreg 6.25 b.i.d., doxazosin 2 mg daily, enteric- coated aspirin 81 mg a day, Eliquis 5 b.i.d., and torsemide 20 mg every other day. PAST MEDICAL HISTORY: 1. Aortic and mitral valve replacement, bioprosthetic in July 2016 at [facility]. 2. 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 3. Underwent a redo aortic valve replacement and mitral valve replacement, both bioprosthetic, on 08/31/2019. 4. History of heart failure. 5. Postop atrial fibrillation, status post EILEEN cardioversion. 6. Dual Chamber Medtronic PPM. 7. Gout. 8. Hypertension. ALLERGIES: He is not allergic to any medication. However, Coumadin exacerbates his gout significantly. SOCIAL HISTORY: He does not smoke, does not drink. PHYSICAL EXAMINATION: Blood pressure was 139/78. Jugular venous pressure was elevated. First and second heart sounds were heard. Respiratory System: Examination revealed dullness at the base with bibasilar inspiratory crepitations. Abdomen was soft, obese. Bowel sounds were heard. Central Nervous System: Alert, oriented, was moving all 4 extremities. Examination of extremities revealed pitting edema up to his doan. HEENT: Atraumatic, normocephalic. Pupils were equal and reacting to light. Examination of Neck: Jugular venous pressure was distended. There was no lymphadenopathy. Trachea was central. He was tachypneic. Respiratory rate of 28 beats per minute. ASSESSMENT AND PLAN: Mr. Zac Bailey is a 68-year-old, gentleman who underwent a bioprosthetic valve replacement, aortic valve and mitral valve, on 08/24/2016. 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 Was treated extensively and underwent a redo aortic and mitral valve bioprosthetic placement at [facility] on 08/31/2019. He also had postoperative atrial fibrillation. Underwent cardioversion. Also had a permanent pacemaker implanted,dual chamber. He also has a history of hypertension and gout. Recently, his adjustments were made as far as his Lasix was concerned and changed to torsemide on every other day. He has had increasing shortness of breath, cough with expectoration for the last week with orthopnea. Came to the emergency room and is going to be admitted. RECOMMENDATIONS: 1. All lab work are pending. We will get a CBC, CMP, proBNP, serum magnesium level, in addition to cardiac enzymes. 2. We will get a chest x-ray. 3. We will give him Lasix 60 mg now and Lasix 40 mg IV twice daily. 4. Continue with his home medications. For anticoagulation therapy, on aspirin and Eliquis. 5. He has gout. Continue with allopurinol 400 mg daily. 6. Continue with beta blockers, 6.25 mg twice daily. 7. We will get an echocardiogram and interrogate his pacemaker. cc: Kashmir Haro MD [facility]
[2019-11-11 11:34] LABS: ALBUMIN 3.6 g/dL (3.5-5.0); CALCIUM 9.1 mg/dL (8.8-10.2); CREATININE 1.7 mg/dL (0.7-1.2); MAGNESIUM 2.2 mg/dL (1.5-2.7); TOTAL BILIRUBIN 1.08 mg/dL (0.20-1.00); TOTAL PROTEIN 7.2 g/dL (6.3-8.3)
--- NOTE | 2019-11-11 13:35 | EKG Report ---
Test Performed on : 11/11/2019 1:25:58 PM Test Reason : sob Blood Pressure : / mmHG Vent. Rate : 083 BPM Atrial Rate : 286 BPM P-R Int : 000 ms QRS Dur : 172 ms QT Int : 456 ms P-R-T Axes : 000 180 101 degrees QTc Int : 535 ms Atrial flutter. Right axis deviation Nonspecific intraventricular block Inferior infarct , age undetermined Abnormal ECG When compared with ECG of 03-AUG-2016 06:18, Atrial flutter. has replaced Sinus rhythm. Questionable change in QRS duration Unconfirmed Result
--- NOTE | 2019-11-11 13:49 | ED EKG INTERP ---
EKG Interpretation - EKG Time of EKG reading by physician:: 13:48 EKG Read and Signed by:: Leon Austin EKG Interpretation (*Must complete 3 of following elements*): Abnormal Rate: 89 Rhythm: paced rhythm [place]: right QRS: NSIVCD IL Interval: normal ST Wave: non-specific ST changes Prior EKG Comparison: unchanged from prior Attestation - Physician/ ROMAIN Attestation Patient care was provided by Advanced Practice Provider:: Yes Advanced Practice Provider:: Heike Thomas Advanced Practice Provider documentation review:: The Mid-level provider documentation, treatment plan and medical decision making was reviewed by the physician who agrees with all treatment and medical decision making by the MLP. The physician spent face to face time with patient:: Yes Advanced Practice Provider documentation review:: Supervising physician onsite and consulted in the evaluation and care of this patient. The physician did have a face to face encounter with the patient.
[2019-11-11] MEDS ORDERED: ZOFRAN IV PRN (15:09)
[2019-11-11] MEDS ORDERED: ZYLOPRIM PO SCH (16:43)
[2019-11-11] MEDS ORDERED: CARDURA PO SCH (16:43)
[2019-11-11] MEDS: ASPIRIN EC PO SCH (17:30)
--- NOTE | 2019-11-11 18:10 | HISTORY AND PHYSICAL ---
ADDENDUM: The patient was seen and examined by me [id number]. All the laboratory, vital signs and images were reviewed. The patient presented to the emergency department with a chief complaint of shortness of breath for the past 3 to 4 days. Apparently, he was on the Lasix for his CHF and it was working fine, and then was changed to torsemide, I believe every other day and since then he started gaining some weight and having shortness of breath. At the moment of my physical exam, this patient has crackles bilaterally at the bases and he was short of breath, but as per the patient, it was better compared with before. He was admitted basically because of pulmonary edema and CHF exacerbation. He has lower extremity edema 1 to 2+. I will continue with the same management. Cardiology Department already evaluated this patient. I do not think he has any infectious process because his plasma lactate was negative x2, as well as the white blood cell count was normal at 10.1. He does have chronic kidney disease. We need to keep an eye on that because he has been getting Lasix. His proBNP is elevated at 8233 and actually is higher compared with 2017. I do not see any medication for diabetes, but I checked back his blood sugar since 2016 and actually has been acceptable. I will get a hemoglobin A1c tomorrow. I agree with the rest of the nurse practitioner's assessment and plan. I will continue following the recommendations of Cardiology Department. cc: Pranay Mishra MD
--- NOTE | 2019-11-11 18:32 | HISTORY AND PHYSICAL ---
CHIEF COMPLAINT: Shortness of breath with pedal edema. HISTORY OF PRESENT ILLNESS: This is a 68-year-old gentleman with a prior history of heart failure, atrial fib, status post EILEEN cardioversion, biventricular pacemaker, aortic and mitral valve replacement in July 2016 with redo replacements, both bioprosthetic, on 08/31/2019. He presents to the emergency room complaining of 3 days of increasing shortness of breath with lower extremity edema. He reports orthopnea and shortness of breath at rest. He was found to be in heart failure with chest x-ray that revealed pulmonary edema with pleural effusions with left greater than right, and a proBNP of 8233. PAST MEDICAL HISTORY: 1. Hypertension. 2. Gout. 3. Biventricular pacemaker. 4. Post atrial fibrillation, status post EILEEN cardioversion. 5. History of heart failure. 6. Aortic and mitral valve replacements, both bioprosthetic, in July 2016 at [facility] with subsequent endocarditis. 7. Redo aortic valve replacement and mitral valve replacement, both bioprosthetic, on 08/31/2019. PAST SURGICAL HISTORY: As stated above. SOCIAL HISTORY: He denies any alcohol, tobacco, or illicit drug use. He is , lives his . Has children that are active in his care. ALLERGIES: No known drug allergies. He does report intolerance to Coumadin as it exacerbates his gout significantly. HOME MEDICATIONS: A list will be obtained by the nursing staff and once verified, will review and restart as appropriate. REVIEW OF SYSTEMS: Discussed with patient with pertinent positives stated in the HPI. He denied any syncope or dizziness, any palpitations, any chest pain, productive cough, any fevers or chills, any night sweats, any nausea, vomiting, diarrhea, constipation, black or bloody vomitus or stools, hematuria, dysuria, frequency, urgency. PHYSICAL EXAMINATION: GENERAL: This is a 68-year-old gentleman who is sitting up on the stretcher in the emergency room in no distress. VITAL SIGNS: Blood pressure is 110/74 with a heart rate of 80, respirations are 20, temperature is 98.3 degrees oral, with room air saturations 97 to 98%. EYES: Pupils are equal, round, and react to light. EOMs are intact. Sclerae are anicteric. HEAD: Head is normocephalic, atraumatic. ENT: Mucous membranes are moist. NECK: Supple with trachea midline. He does have elevated JVP. CARDIOVASCULAR: Regular rate and rhythm. S1 and S2 are appreciated. PULMONARY: Breath sounds have crackles throughout both bases. Chest rises and falls symmetrically with respiration. GASTROINTESTINAL: Abdomen is soft, nontender, and nondistended with bowel sounds in all 4 quadrants. NEUROLOGIC: He is alert and oriented x3. SKIN: Warm and dry. LABS: WBC is 10.1 with hemoglobin 11.6, hematocrit 37.7, and platelets of 14.7. Sodium 139, potassium 4, BUN 28, with a creatinine of 1.7. Glucose is 133. Troponin is 44 with a proBNP of 8233. Chest x-ray revealed pulmonary edema and pleural effusions, with left greater than right. ASSESSMENT: 1. Dyspnea. 2. Congestive heart failure exacerbation. 3. Status post bioprosthetic atrial valve and mitral valve on 08/31/2019. 4. History of chronic kidney disease with a baseline creatinine of 1.2. 5. Acute kidney injury. 6. Chronic anticoagulation, secondary to bioprosthetic valves. We will continue his Eliquis. 7. History of gout. PLAN: 1. Patient will be admitted to the hospital and placed on telemetry. 2. We will consult Cardiology. 3. Echocardiogram has been ordered. 4. EKG in the morning. 5. Continue his home medications as appropriate with the exception that we will hold torsemide. 6. Give Lasix 40 mg IV b.i.d. 7. Check BMP, CBC, and magnesium in the morning. 8. Further treatments pending hospital course. Dictated by FORREST Mayfield for Pranay Mishra MD cc: FORREST Mayfield MD
[2019-11-11] MEDS: ELIQUIS PO SCH (21:21)
[2019-11-11] MEDS: CARDURA PO SCH (21:21)
[2019-11-11] MEDS: COREG PO SCH (21:22)
[2019-11-12 06:07] LABS: BASO% 1.1 % (0.0-0.8); EOS# 0.49 X1000 (0.0-0.7); EOS% 5.3 % (0.0-10.0); HEMATOCRIT 36.2 % (42.0-52.0); HEMOGLOBIN 10.9 g/dL (14.0-18.0); LYMPH# 2.06 X1000 (1.2-3.4); LYMPH% 22.3 % (20.5-51.1); MCH 29.6 PG (27-31); MCHC 30.1 g/dL (33-37); MCV 98.4 FL (81-99); MONO% 9.8 % (1.7-9.3); MPV 11.6 FL (7.4-10.4); NEUT# 5.68 X1000 (1.4-6.5); NEUT% 61.5 % (42.2-75.2); PLT 299 X1000 (130-400); RBC 3.68 XMIL (4.7-6.1); RDW 14.6 % (11.5-14.5); WBC 9.23 X1000 (4.8-10.8)
[2019-11-12 06:22] LABS: HEMOGLOBIN A1C 5.1 % (4.8-6.0)
[2019-11-12 06:27] LABS: CALCIUM 9.1 mg/dL (8.8-10.2); CREATININE 1.7 mg/dL (0.7-1.2); POTASSIUM 3.6 mmol/L (3.5-5.1)
--- NOTE | 2019-11-12 07:49 | EKG Report ---
Test Performed on : 11/12/2019 07:31:15 AM Test Reason : dyspnea Blood Pressure : / mmHG Vent. Rate : 086 BPM Atrial Rate : 283 BPM P-R Int : 000 ms QRS Dur : 194 ms QT Int : 470 ms P-R-T Axes : 000 237 077 degrees QTc Int : 562 ms Ventricular-paced rhythm with premature ventricular or aberrantly conducted complexes. Abnormal ECG When compared with ECG of 11-NOV-2019 13:25, (Unconfirmed) Electronic ventricular pacemaker has replaced Atrial flutter. Confirmed by Tammy DELVALLE, Deep Andrade ([id number]) on 11/12/2019 9:50:00 AM
[2019-11-12] MEDS: LASIX IV SCH ×2 (08:41→20:12)
[2019-11-12] MEDS: COREG PO SCH ×2 (08:41→20:11)
[2019-11-12] MEDS: ASPIRIN EC PO SCH (08:41)
[2019-11-12] MEDS: ZYLOPRIM PO SCH (08:41)
[2019-11-12] MEDS: ELIQUIS PO SCH ×2 (08:41→20:11)
--- NOTE | 2019-11-12 09:24 | ECHO REPORT ---
ORDER DATE: 11/11/2019 INDICATION: Heart failure. This is a limited study. No Doppler evaluation was performed. FINDINGS: 1. The left ventricle is dilated with an end-diastolic dimension of 6.4 cm. Normal wall thicknesses with a posterior and interventricular septal wall thickness of 1.0 and 1.1 cm respectively. Reduced LV systolic function with an estimated EF of 20 to 25 percent. There is global hypokinesis. In addition, there appears to be significant dyssynchronous contraction of the septum and lateral wall visualized. 2. The left atrium is severely enlarged at 6.5 cm. 3. Linear echodensity consistent with device leads is noted in the right heart chambers. 4. No pericardial effusion is identified. A pleural effusion is noted. 5. Prosthetic valves are noted in the aortic and mitral position. No Doppler evaluation was performed on these. cc: MD Isabella Shah PA
--- NOTE | 2019-11-12 10:50 | PROGRESS NOTE ---
DATE: 11/12/2019 SUBJECTIVE: The patient seems to be feeling better compared to yesterday. He is breathing more comfortably, and actually he is not on oxygen. Vital signs are stable. I will continue with the same management for now. His BUN and creatinine are about the same compared with yesterday. Hemoglobin A1c 5.1. OBJECTIVE: Vital Signs: Temperature 97.4 degrees, pulse 82, respiratory rate 17, blood pressure 133/61, oxygen saturation 98 on room air. HEENT: Head normocephalic. No trauma. PERRLA. Neck: Supple. He does have some JVD. Central trachea. Chest: Clear to auscultation. Some crackles at the bases. Abdomen: Soft, nontender, nondistended. No hepatosplenomegaly. Extremities: There is 2+ lower extremity edema. No clubbing. No cyanosis. Neurological: The patient is hard of hearing, but he is awake, alert, and oriented x3. No focal deficit. LABORATORY DATA: WBC 9.2, hemoglobin 10.9, hematocrit 36.2, platelets 299,000. Sodium 141, potassium 3.6, chloride 98, bicarbonate 31, BUN 30, creatinine 1.7, glucose 118, calcium 9.1. Magnesium 2. ASSESSMENT AND PLAN: 1. Congestive heart failure exacerbation, systolic. Continue with the same management. He seems to be feeling better. His weight went down from 246 pounds to 238 pounds. I asked the nurse to measure the urine, strict in and out. Will continue to monitor and follow the recommendations of Cardiology Department. 2. Status post aortic and mitral valve replacement, bioprosthetic in 2017 at [facility]. Aware. Continue with the same management. 3. History of atrial fibrillation, status post cardioversion. He is not in atrial fibrillation at this moment. 4. Status post biventricular pacemaker implanted at [facility]. 5. History of gout. 6. Hypertension, stable. Continue with the same management. 7. Fluid overload. Continue with diuretics. Likely due to congestive heart failure exacerbation. 8. 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 Aware. Already treated. At this moment, his white blood cell count and lactate level are normal. 9. Likely chronic kidney disease. It looks like he is around his baseline. Since 2016, his creatinine has been between mostly 1.5 and 1.7. cc: Pranay Mishra MD
[2019-11-12] MEDS ORDERED: CORDARONE 150 MG/D5W 150 MG/100 ML IV.SOLN IV ONE (13:23)
--- NOTE | 2019-11-12 13:42 | CARDIOLOGY PROGRESS NOTE ---
DATE: 11/12/2019 PROBLEM LIST: 1. Aortic and mitral valve bioprosthetic redo replacement in 2020. Previous surgery at [facility] in 2017. He had mitral valve and bioprosthetic valve surgery in 2017. 2. 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 3. Medtronic dual chamber pacemaker and cardioversion done during his hospitalization at [facility]. 4. Hypertension. 5. Gout. SUBJECTIVE: The patient presented with orthopnea and heart failure. Echocardiogram revealed severe LV dysfunction, ejection fraction of 20 to 25%. Medtr[employer] tour sales representative helped with evaluating the AICD. The patient is V paced 98% of the time is in persistent atrial fibrillation since his discharge from the hospital at [facility]. Today, since his diuresis, he feels better. Does not complain of chest pain. There is no orthopnea. PHYSICAL EXAMINATION: Vitals: Blood pressure was 118/55. Neck: Jugular venous pressure was elevated. Cardiac: There was an S3 gallop noted. Respiratory System: Scattered bibasilar inspiratory crepitations. Abdomen: Obese, nontender. There was no guarding or rigidity. Bowel sounds were heard. Extremities: The extremities revealed pitting edema. HEENT: Atraumatic, normocephalic. Pupils were equal and reacting to light. LABORATORY EXAMINATION: Hemoglobin 10.9, hematocrit 36.2, platelet count of 299,000. Chemistry with sodium 141, potassium 3.6, BUN 30, creatinine 1.7. Total bilirubin 1.0. AST and ALT were normal. Troponin was normal. ProBNP was elevated at 8,233. ASSESSMENT AND PLAN: 1. The patient has severe LV dysfunction, this is secondary to asynchrony given his dual-chamber pacemaker. The patient will need to be upgraded to a Bi V AICD. I have discussed this with his sheet mill supervisor at [facility]. They will call and make an appointment to see Dr. An at [facility] in the next week or so. 2. He is in persistent atrial fibrillation. I will start him on IV amiodarone and plan for cardioversion in the morning, following which he can be discharged on 400 mg p.o. b.i.d. for a couple of days and then 400 mg a day. 3. After his cardioversion we will have the Medtronic device interrogated as well. 4. He has LV dysfunction. He is on Coreg. I will add Cozaar 50 mg to his medical regimen. 5. He is anticoagulated, has been taking Eliquis and anticoagulation therapy since his discharge from [facility]. He is on Eliquis 5 mg twice daily. We will continue that. 6. Following his cardioversion we plan to discharge him tomorrow evening. cc: Kashmir Haro MD MTDD
[2019-11-12] MEDS ORDERED: CORDARONE 360 MG/D5W 360 MG/200 ML IV.SOLN IV ONE (14:00)
[2019-11-12 14:31] LABS: CALCIUM 9.2 mg/dL (8.8-10.2); CREATININE 1.7 mg/dL (0.7-1.2); MAGNESIUM 1.9 mg/dL (1.5-2.7); POTASSIUM 3.4 mmol/L (3.5-5.1)
[2019-11-12] MEDS ORDERED: KLOR-CON PO ONE (15:21)
[2019-11-12] MEDS ORDERED: CORDARONE 540 MG in D5W 289.2 ML IV ONE (20:00)
[2019-11-12] MEDS: CARDURA PO SCH (20:11)
[2019-11-12] MEDS ORDERED: MAG-OX PO SCH (21:00)
[2019-11-13 06:20] LABS: CREATININE 1.8 mg/dL (0.7-1.2); POTASSIUM 3.3 mmol/L (3.5-5.1)
[2019-11-13] MEDS ORDERED: KLOR-CON PO ONE ×2 (07:15→08:28)
--- NOTE | 2019-11-13 07:40 | EKG Report ---
Test Performed on : 11/13/2019 07:15:05 AM Test Reason : Afib Blood Pressure : / mmHG Vent. Rate : 084 BPM Atrial Rate : 080 BPM P-R Int : 000 ms QRS Dur : 186 ms QT Int : 468 ms P-R-T Axes : 000 260 100 degrees QTc Int : 553 ms Ventricular-paced rhythm Abnormal ECG When compared with ECG of 12-NOV-2019 07:31, Vent. rate has decreased BY 2 BPM Confirmed by Tammy DELVALLE, Deep Andrade ([id number]) on 11/13/2019 9:25:29 AM
--- NOTE | 2019-11-13 07:45 | Diag Imaging Result Doc PS360 ---
EXAM: CHEST-2 VIEWS HISTORY: CHF, dyspnea, pleural effusion TECHNIQUE: Two views COMPARISON: 11/11/2019 FINDINGS: Heart valves have been replaced and there is a right-sided pacemaker. The heart is mildly prominent. There are small bilateral pleural effusions with basilar atelectasis. No consolidation. Decreased vascular prominence. IMPRESSION: Mild interval improvement. Electronically signed by Agustín Malik 11/13/2019 7:43 AM
[2019-11-13] MEDS: COREG PO SCH ×2 (07:54→08:24)
[2019-11-13] MEDS: ASPIRIN EC PO SCH ×2 (07:54→08:23)
[2019-11-13] MEDS: ZYLOPRIM PO SCH ×2 (07:55→08:23)
[2019-11-13] MEDS: ELIQUIS PO SCH ×2 (07:55→08:23)
[2019-11-13] MEDS: COZAAR PO SCH ×2 (07:55→08:23)
[2019-11-13] MEDS ORDERED: XYLOCAINE 2% VISCOUS ONE (09:02)
[2019-11-13] MEDS ORDERED: CLAVE TWINSITE 32 IN 11959 ONE (10:32)
[2019-11-13] MEDS ORDERED: ANESTHESIA PB SET 88 IN 5742 ONE (10:32)
[2019-11-13] MEDS ORDERED: NS 500 ML ONE (10:33)
[2019-11-13] MEDS ORDERED: DIPRIVAN 1% ONE (10:37)
[2019-11-13] MEDS ORDERED: XYLOCAINE-MPF 1% 5 ML ONE (10:37)
[2019-11-13] MEDS: LASIX IV SCH (12:38)
--- NOTE | 2019-11-13 13:09 | PROGRESS NOTE ---
DATE: 11/13/2019 SUBJECTIVE: The patient seems to be feeling better, but he is tachycardic. I am not quite sure about his rhythm, but apparently he is in atrial fibrillation per Cardiology Department. He will go for EILEEN cardioversion this morning. PHYSICAL EXAMINATION: Vital Signs: Temperature 97.4 degrees, pulse 84, respiratory rate 16, blood pressure 116/61, oxygen saturation 100% on room air. HEENT: Head normocephalic. No trauma. PERRLA. Neck: Supple. He does have some JVD. Central trachea. Chest: Clear to auscultation. Some crackles at the bases. Abdomen: Soft, nontender, nondistended. No hepatosplenomegaly. Extremities: 2+ lower extremity edema. No clubbing. No cyanosis. Neurological examination: The patient is awake and alert. He is oriented x3. He is hard of hearing. LABORATORY DATA: Sodium 139, potassium 3.3, chloride 97, bicarbonate 30, BUN 31, creatinine 1.8, glucose 117, calcium 9, magnesium 2. ProBNP 5256. ASSESSMENT AND PLAN: 1. Congestive heart failure exacerbation, systolic. Continue with the same management. We have a negative balance of 1.1 L. Continue with same management. Urine output has been stable. 2. The patient is in severe LV dysfunction and this is secondary to asynchrony given his dual chamber pacemaker, probably this as per Cardiology Department needs to be upgraded to a Bi-V AICD. 3. Persistent atrial fibrillation. He has been placed on IV amiodarone and he will have a EILEEN cardioversion today. 4. Chronic kidney disease. We will continue to monitor. 5. Status post aortic and mitral valve replacement, bioprosthetic in 2017 at [facility], aware. Continue with same management. 6. Status post biventricular pacemaker implanted at [facility]. 7. History of gout. 8. Hypertension, stable. 9. Fluid overload. It looks like he is getting better. 10. Culture negative endocarditis, aware, already treated. His white blood cell count has been negative x2. No fever, no chills, and the lactate level is normal. This patient will have EILEEN cardioversion today and probably after that, this patient can be discharged. I will follow the recommendations of Cardiology Department. cc: Pranay Mishra MD
--- NOTE | 2019-11-13 13:42 | Transesophageal Echocardiogram ---
DATE: 11/13/2019 INDICATION: Atrial fibrillation. PROCEDURE IN DETAIL: Mr. Bailey was brought to the catheterization laboratory in a fasting state. Informed consent was obtained, prepped in usual fashion. He was anesthetized with Hurricaine spray. Appropriate anesthetic was performed via Anesthesia. EILEEN probe was passed without difficulty. Images were obtained in multiple planes. At the conclusion of the procedure, the EILEEN probe was removed. No apparent complications. FINDINGS: 1. The right atrium appears enlarged. A linear echodensity consistent with device leads is noted the right heart chambers. 2. No evidence of shunting across the interatrial septum with injection of agitated saline contrast or color Doppler. 3. Mild tricuspid regurgitation. 4. The right ventricle appears to have mild reduction in RV systolic function. 5. No significant pulmonic insufficiency. 6. Marked enlargement of the left atrium. Evidence of a low-flow state seen with spontaneous echo contrast. There is evidence of organized clot in the left atrial appendage as well as pulse wave velocity less than 40 cm/sec. 7. There is a bioprosthetic in the mitral position with mild central mitral regurgitation. No evidence of perivalvular leak. 8. The left ventricle appears enlarged with marked reduction in LV systolic function with an estimated ejection fraction of 20 to 25 percent. No obvious thrombus in the left ventricle. 9. There is a bioprosthetic in the aortic position which was somewhat difficult to visualize. It appears to be opening well. There does not appear to be a significant amount of aortic insufficiency associated with it. 10. There is mild atherosclerosis in the descending thoracic aorta. 11. No pericardial effusion identified. cc: MD Isabella Shah PA MTDD
[2019-11-13 15:12] VITALS: BP 106/55
[2019-11-13] MEDS ORDERED: LOVENOX SUBQ SCH (15:15)
--- NOTE | 2019-11-13 15:51 | CARDIOLOGY PROGRESS NOTE ---
DATE: 11/13/2019 This is a follow-up note. PROBLEM LIST: 1. Aortic and mitral bioprosthetic valve replacement 2020. Previous surgery at [facility] in 2017 with mitral valve and bioprosthetic valve replacement in 2017. 2. Culture negative endocarditis. 3. Medtronic dual-chamber pacemaker status post cardioversion during hospitalization at [facility] in August of 2019. 4. Hypertension. 5. Gout. 6. Patient as far as symptoms are concerned, he feels better. He does not complain of chest pain. There is no shortness of breath. His pedal edema has also improved. PHYSICAL EXAMINATION: Vital Signs: Blood pressure was 116/61. First and second heart sounds were heard. Respiratory: Distant breath sounds. : Abdomen was obese soft, and nontender. There was no guarding or rigidity. Bowel sounds were heard. Extremities: Examination of extremities revealed mild pedal edema. HEENT: Atraumatic, normocephalic. Pupils were equal and reacting to light. LABORATORY: Examination revealed sodium 139, potassium 3.3, BUN 31, and creatinine 1.8. ProBNP down to 5.6. ASSESSMENT AND PLAN: 1. Today, he underwent a EILEEN prior to cardioversion and was loaded with IV amiodarone. However, the transesophageal echocardiogram revealed left atrial clot as well as spontaneous echo contrast as a result of which cardioversion was not performed. Ejection fraction of 20 to 25 percent. Given this, I would recommend the following changes. 2. He has been on Eliquis 5 mg twice daily for a month and prior to that, he was off Eliquis for PICC line removal. However, having been on Eliquis and still he has got a left atrial clot, I will change him from Eliquis to Lovenox 1 mg/kg subcutaneous b.i.d. He will have an appointment to follow up with his special inspector, Dr. An at the [facility] in the next 1 to 2 weeks. In the interim, as an outpatient, we will get a CBC and BMP checked as well. 3. Severe LV dysfunction, which is secondary to persistent 90% RV pacing, and he will need a Biventricular upgrade. That will be done at [facility] with Dr. An. In the interim, he is on Cozaar 50 mg a day. I will increase his Coreg to 12.5 mg twice daily. He was given IV amiodarone. However, given the clot, I have not added any other antiarrhythmic agents. 4. His creatinine was 1.7. Today, it is 1.8. Before discharge, we will give him p.o. potassium chloride 40 mEq, and at discharge would recommend 10 mEq of potassium daily. We will have a BMP checked as an outpatient. 5. Given his LV dysfunction, we will continue with his Cozaar as well. cc: Kashmir Haro MD
--- NOTE | 2019-11-13 19:32 | DISCHARGE SUMMARY ---
ADMISSION DATE: 11/11/2019 DISCHARGE DATE: 11/13/2019 DISCHARGE DIAGNOSES: 1. Persistent atrial fibrillation with status post transesophageal echocardiogram, a left atrium appendix thrombus has been found. 2. Congestive heart failure exacerbation, systolic. 3. The patient with severe left ventricular dysfunction which is likely secondary to asynchrony of his dual chamber pacemaker. 4. Chronic kidney disease. 5. Status post aortic and mitral valve replacement, bioprosthetic, in 2017 at [facility]. 6. Status post biventricular pacemaker implanted at [facility]. 7. History of gout. 8. Hypertension. 9. Fluid overload. 10. History of culture-negative endocarditis, already treated. PROCEDURES PERFORMED: 1. Chest x-ray dated 11/11/2019: Impression--pulmonary edema and pleural effusion, worse on the left than the right. 2. Echocardiogram dated 11/11/2019: Findings--reduced left ventricular systolic function with an estimated ejection fraction of 20-25 percent with global hypokinesis. There appears to be significant dyssynchronous contraction of the septum and the lateral wall visualized. No pericardial effusion is identified. Pleural effusion is noted. Linear echodensity consistent with device leads and prosthetic valve noted in the aortic and mitral position. 3. Chest x-ray dated 11/13/2019: Impression--mild interval improvement. 4. Transesophageal echocardiogram dated 11/13/2019: Findings--the left ventricle appears enlarged with marked reduction in left ventricular systolic function with an estimated ejection fraction of 20-25 percent. No obvious thrombus in the left ventricle. There is a bioprosthetic in the aortic position, which was somewhat difficult to visualize. It appears to be opening well . There does not appear to be a significant amount of aortic insufficiency associated with it. The right atrium appears enlarged. There is a marked enlargement of the left atrium. Evidence of a low flow state seen with spontaneous echo contrast. There is evidence of organized clot in the left atrial appendage, as well as pulse wave velocity less than 40 cm/sec. HOSPITAL COURSE: A 68-year-old male with a prior history of heart failure, atrial fibrillation, status post EILEEN, cardioversion before a biventricular pacemaker, aortic and mitral valve replacement with redo replacement, both prosthetic, I believe in 08/31/2019, who presented to the emergency department complaining of 3 to 4 days of increasing shortness of breath with lower extremity edema, orthopnea, and actually the shortness of breath is even at rest. He was found to be in heart failure. Chest x-ray showed pulmonary edema and pleural effusion with a proBNP elevated at 8,233. Apparently, he was on Lasix and he was doing fine and recently he was changed to torsemide and after that he was starting to feel bad and having more shortness of breath. The patient has been evaluated by Cardiology Department. He was placed on diuretics with Lasix and after that he started to feel better. He was in persistent atrial fibrillation deep, so they decided to do a EILEEN and possible cardioversion, but there is an evidence of a left atrium appendage clot so no cardioversion was performed. Cardiology Department also adjusted his medications. The patient seems to be feeling better. He will be discharged home today. We will stop the Eliquis and put him on Lovenox, and he will need to follow up with the EP crayon sorting machine feeder as an outpatient. At the moment of discharge, this patient's laboratory seems to be stable, is slightly hypokalemic. Vital signs are stable, completely awake and alert. PHYSICAL EXAMINATION: Vital Signs: Temperature 97.9 degrees, pulse 82, respiratory rate 16, blood pressure 106/55, oxygen saturation 99% on room air. HEENT: Head normocephalic, no trauma. PERRLA. Neck: Supple. He does have some JVD. Central trachea. Chest: Some crackles at the bases. Abdomen: Soft, nontender, nondistended. No hepatosplenomegaly. Extremities: 2+ lower extremity edema. Cardiovascular: Irregularly irregular rate and rhythm. Neurological Examination: Awake, alert, he is oriented x3. He is hard of hearing. LABORATORY: Sodium 139, potassium 3.3, chloride 97, bicarbonate 30, BUN 31, creatinine 1.8, glucose 117, calcium 9, magnesium 2. ProBNP is down from 8,230 to 5,256. DISCHARGE MEDICATIONS: Allopurinol 100 mg p.o. daily, Coreg 12.5 mg p.o. b.i.d., doxazosin 2 mg p.o. daily, Lovenox 120 mg subcutaneous every 12 hours, Lasix 40 mg p.o. daily, losartan 50 mg p.o. daily, and potassium chloride ER 10 mEq p.o. daily. cc: Pranay Mishra MD
[2019-11-13] MEDS ORDERED: CORDARONE PO SCH (21:00)
[2019-11-13] MEDS ORDERED: COREG PO SCH (21:00)
[2019-11-14] MEDS ORDERED: KLOR-CON PO SCH (09:00)
[2019-11-14] MEDS ORDERED: LASIX PO SCH ×2 (09:00)
[2019-11-16] MEDS ORDERED: CORDARONE PO SCH (09:00)
== END 2019-11-13 16:45 | disposition home health service (06) | DRG 291 ==
LOC: ED 10:03 → 2N 15:20
PROVIDERS: ATTEND Internal Medicine

== ENCOUNTER 2019-11-16 22:44 | Inpatient (IN) ==
[2019-11-16] MEDS ORDERED: LOVENOX 1 MG/KG SUBQ ONE (23:02)
[2019-11-16 23:18] LABS: BASO# 0.14 X1000 (0.0-0.2); BASO% 1.4 % (0.0-0.8); EOS# 0.66 X1000 (0.0-0.7); EOS% 6.5 % (0.0-10.0); HEMOGLOBIN 11.5 g/dL (14.0-18.0); IMM GRAN# 0.03 X1000 (0.0-0.04); IMM GRAN% 0.3 % (0.0-0.5); LYMPH# 2.61 X1000 (1.2-3.4); LYMPH% 25.8 % (20.5-51.1); MCH 30.3 PG (27-31); MCHC 31.1 g/dL (33-37); MCV 97.4 FL (81-99); MONO# 1.31 X1000 (0.11-0.59); MONO% 12.9 % (1.7-9.3); NEUT# 5.37 X1000 (1.4-6.5); NEUT% 53.1 % (42.2-75.2); PLT 292 X1000 (130-400); RDW 14.7 % (11.5-14.5); WBC 10.12 X1000 (4.8-10.8)
[2019-11-16 23:23] LABS: INR 1.16
[2019-11-16 23:24] LABS: PTT 37.2 Seconds (22.3-41.8)
[2019-11-16 23:34] LABS: ALB/GLOB RATIO 1.5; ALBUMIN 4.1 g/dL (3.5-5.0); CALCIUM 9.7 mg/dL (8.8-10.2); CREATININE 1.7 mg/dL (0.7-1.2); POTASSIUM 4.5 mmol/L (3.5-5.1); TOTAL BILIRUBIN 0.88 mg/dL (0.20-1.00); TOTAL PROTEIN 6.9 g/dL (6.3-8.3)
--- NOTE | 2019-11-16 23:43 | EKG Report ---
Test Performed on : 11/16/2019 11:10:35 PM Test Reason : cp Blood Pressure : / mmHG Vent. Rate : 081 BPM Atrial Rate : 088 BPM P-R Int : 000 ms QRS Dur : 196 ms QT Int : 472 ms P-R-T Axes : 000 205 088 degrees QTc Int : 548 ms Wide QRS rhythm. Right superior axis deviation Nonspecific intraventricular block Abnormal ECG When compared with ECG of 13-NOV-2019 07:15, Wide QRS rhythm. has replaced Electronic ventricular pacemaker Unconfirmed Result
[2019-11-16] MEDS ORDERED: LOVENOX SUBQ ONE (23:45)
--- NOTE | 2019-11-17 00:04 | PROVIDER DOCUMENTATION ---
This chart was entered by Erma Clay Scribe, acting as scribe for Stan Fields MD. HPI-Respiratory General - General Chief Complaint: Shortness of Breath Stated Complaint: sob, fluid overload Time Seen by Provider: 11/16/19 22:47 Source: patient, family (daughter Isabella) Allergies/Adverse Reactions: Patient Allergies Allergy/AdvReac Type Severity Reaction Status Date / Time No Known Allergies Allergy Verified 11/17/19 01:00 Home Medications: Home Medication List Medication Instructions Recorded Confirmed Last Taken Type Doxazosin [Cardura] 2 mg PO DAILY 11/11/19 11/17/19 Unknown History Allopurinol 100 mg PO DAILY #30 11/13/19 11/17/19 Unknown Rx Carvedilol [Coreg] 12.5 mg PO BID #60 tab 11/13/19 11/17/19 Unknown Rx Enoxaparin [Lovenox] 110 mg SUBQ Q12H #28 syringe 11/13/19 11/17/19 Unknown Rx Furosemide [Lasix] 40 mg PO DAILY #30 tab 11/13/19 11/17/19 Unknown Rx Losartan [Cozaar] 50 mg PO DAILY #30 tab 11/13/19 11/17/19 Unknown Rx Potassium Chloride E.r. [Klor-Con] 10 meq PO DAILY #30 tab 11/13/19 11/17/19 Unknown Rx Ascorbic Acid [Vitamin C] 1,000 mg PO DAILY 11/17/19 11/17/19 Unknown History Magnesium 250 mg PO DAILY 11/17/19 11/17/19 Unknown History - History of Present Illness-Resp Nature of Presenting Problem: 68yowm presents to ED by EMS cc SOB, fluid overload, decreased urine output and weight gain of 6lbs in 3 days according to daughter, Isabella, who is a Cardiology VASC TECH here. She reports pt was admitted as inpatient last week for same symptoms, dx with CHF exacerbation, Pulmonary edema, SOB and renal insufficiency and she has been giving him 80-100 of Lasix daily. He had a pacemaker placed in B on 08/31/2019. He has a left atrial thrombus and is on Lovenox shots daily. He is on 81mg aspirin and 5mg Eliquis daily. He has hx of Mitral valve and aortic valve replacement. He is tachypneic upon exam. He has hx of CHF, Afib, HTN and gout. Quality of Pain: reports: fullness Severity in ED: reports: moderate, severe Onset/Duration: reports: gradual, 3 days ago Timing: reports: still present, changing over time Cough Quality/Degree: reports: no cough Current Respiratory Medication Therapy: Initiated see nurses note Modifying Factors: worse with: deep breath Associated Symptoms: denies: cough Review of Systems - Adult - REVIEW OF SYSTEMS - ADULT Constitutional: reports: see HPI, fatique, weight gain (6lbs in 3 days). denies: chills, fever Eyes: reports: no symptoms reported Ears, Nose, Mouth & Throat: reports: no symptoms reported Cardiovascular: reports: see HPI. denies: chest pain Respiratory: reports: see HPI, shortness of breath. denies: cough Gastrointestinal: reports: see HPI. denies: abdominal pain Genitourinary: reports: no symptoms reported Musculoskeletal: reports: no symptoms reported Integumentary: reports: no symptoms reported Neurological: reports: no symptoms reported Psychiatric: reports: no symptoms reported Endocrine: reports: no symptoms reported Hematologic/Lymphatic: reports: no symptoms reported Allergic/Immunologic: reports: no symptoms reported All Other Systems: Reviewed and Negative Past History - Adult - PAST MEDICAL HISTORY-ADULT Review of Records: reports: Old Records Reviewed, Nursing Assessment Review, Medications Reviewed, Social history reviewed & non-contributory. Major Childhood Illnesses: reports: denies history Cardiovascular: reports: CHF, HTN Respiratory: reports: sleep apnea Gastrointestinal: reports: denies history Obstetrical/Gynecological: reports: denies history Genitourinary: reports: denies history Musculoskeletal: reports: denies history Neurological: reports: denies history Psychiatric: reports: ptsd Endocrine/Immune: reports: denies history Other Conditions: reports: denies history - PRIOR SURGERIES/PROCEDURES Surgical/Procedure History: reports: recent surgery - IMMUNIZATION STATUS Childhood Immunizations: See Nurse Assessment Flu Vaccine: See Nurse Assessment - FAMILY HISTORY Family History: reviewed, not pertinent Physical Exam-General - PHYSICAL EXAM-ADULT Initial Vital Signs Reviewed: Yes - CONSTITUTIONAL General Appearance: alert, moderate distress, anxious. negative: combative - EYES Eyes: PERRL/EOMI, pink conjunctivae. negative: photophobia - HEAD, EARS, NOSE, MOUTH & THROAT HENMT: normocephalic/atraumatic, moist mucous membranes. negative: angioedema - NECK Neck: supple, normal inspection. negative: C-spine tenderness - RESPIRATORY Respiratory: chest non-tender, lungs clear, normal breath sounds, other (ta chypneic). negative: rhonchi, wheezing - CARDIOVASCULAR Cardiovascular: normal peripheral pulses. negative: regular rate, rhythm (irregular), bradycardia, tachycardia - GASTROINTESTINAL (ABDOMEN) Abdominal Exam: normal bowel sounds, soft, distended. negative: guarding, rebound - MUSCULOSKELETAL Back Exam: normal inspection, no CVA tenderness, no vertebral tenderness Extremity: no calf tenderness, swelling (2+ pitting edema BLE). negative: deformity - SKIN Integumentary: normal color. negative: diaphoresis, jaundice - NEUROLOGIC Neurologic: english professor II-XII nml as tested - PSYCHIATRIC Psych/Mental Status: oriented x 3, anxious - HEART Score HEART Score: History: Moderately Suspicious HEART Score: ECG: Non-Specific Repolarization Disturbance/LBBB/PM HEART Score: Age: > or = 65 Years HEART Score: Risk Factors for Atherosclerotic Disease: 1 or 2 Risk Factors HEART Score: Troponin: < or = Normal Limit Total HEART Score:: 5 Progress - PLAN OF CARE/RESULTS Progress/Plan/Lab Results: Vital Signs - 8 hr 11/16/19 22:55 Temperature 98.6 F Pulse Rate 63 Respiratory Rate 23 Blood Pressure 136/72 O2 Sat by Pulse Oximetry 94 L Laboratory Results - last 24 hr 11/16/19 11/16/19 11/16/19 22:58 22:58 22:58 WBC RBC Hgb Hct MCV MCH MCHC RDW Std Deviation Plt Count MPV Immature Gran % (Auto) Neut % (Auto) Lymph % (Auto) [place] % (Auto) Eos % (Auto) Baso % (Auto) Immature Gran # (Auto) Neut # (Auto) Lymph # (Auto) [place] # (Auto) Eos # (Auto) Baso # (Auto) PT INR PTT (Actin FS) Sodium 139 Potassium 4.5 Chloride 98 Carbon Dioxide 29 Anion Gap 12 BUN 33 H Creatinine 1.7 H Estimated GFR/1.73 m2 40 BUN/Creatinine Ratio 19 Glucose 113 H Calculated Osmolality 286 Calcium 9.7 Total Bilirubin 0.88 AST 26 ALT 19 Alkaline Phosphatase 110 Troponin T High Sens [id number]-[id number]-Cwvmararlgo Pept 8108 H Total Protein 6.9 Albumin 4.1 Globulin 2.8 Albumin/Globulin Ratio 1.5 Plasma Lactate 1.3 11/16/19 11/16/19 11/16/19 22:58 22:58 22:58 WBC 10.12 RBC 3.80 L Hgb 11.5 L Hct 37.0 L MCV 97.4 MCH 30.3 MCHC 31.1 L RDW Std Deviation 14.7 H Plt Count 292 MPV 11.0 H Immature Gran % (Auto) 0.3 Neut % (Auto) 53.1 Lymph % (Auto) 25.8 [place] % (Auto) 12.9 H Eos % (Auto) 6.5 Baso % (Auto) 1.4 H Immature Gran # (Auto) 0.03 Neut # (Auto) 5.37 Lymph # (Auto) 2.61 [place] # (Auto) 1.31 H Eos # (Auto) 0.66 Baso # (Auto) 0.14 PT 15.0 INR 1.16 PTT (Actin FS) 37.2 Sodium Potassium Chloride Carbon Dioxide Anion Gap BUN Creatinine Estimated GFR/1.73 m2 BUN/Creatinine Ratio Glucose Calculated Osmolality Calcium Total Bilirubin AST ALT Alkaline Phosphatase Troponin T High Sens 48 H Jdm-Q-Gbruvqubngt Pept Total Protein Albumin Globulin Albumin/Globulin Ratio Plasma Lactate Orders Category Date Time Status NEWS Score 2-4:Order NEWS Lactate Series NOW Care 11/16/19 22:58 Active CHEST-1 VIEW [RAD] Stat Exams 11/16/19 22:[address] ABDOMEN/PELVIS W/O CONTRAST [CT] Stat Exams 11/16/19 23:01 Taken BLOOD CULTURE [BLDCUL] Stat Lab 11/17/19 00:40 Results CBC WITH ELECTRONIC DIFF [HEME] Stat Lab 11/16/19 22:58 Completed COMPREHENSIVE METABOLIC PANEL [CHEM] Stat Lab 11/16/19 22:58 Completed LACTATE, PLASMA [CHEM] Lab 11/17/19 02:00 Uncollected LACTATE, PLASMA [CHEM] Lab 11/17/19 05:00 Uncollected LACTATE, PLASMA [CHEM] Q3H Lab 11/16/19 22:58 Completed PRO B-NATRIURETIC PEPTIDE Stat Lab 11/16/19 22:58 Completed PROTIME WITH INR [COAG] Stat Lab 11/16/19 22:58 Completed PTT [COAG] Stat Lab 11/16/19 22:58 Completed TROPONIN T HIGH SENSITIVITY Stat Lab 11/16/19 22:58 Completed Enoxaparin 1 mg/kg [Lovenox 1 mg/kg] Med 11/16/19 23:02 Discontinued 1 each SUBQ NOW ONE Enoxaparin [Lovenox] Med 11/16/19 23:45 Discontinued 110 mg SUBQ NOW ONE Piperacillin/Tazobactam [Zosyn] 3.375 gm Med 11/17/19 00:19 Discontinued 0.9% Sodium Chloride Inj [Ns] 50 ml IV NOW EKG [EKG] Stat Ther 11/16/19 22:48 Draft Transfer/Admit Order [TRANSFER] Routine Transfer 11/17/19 01:24 Ordered Result Diagrams: 11/16/19 22:58 11/16/19 22:58 - EKG 1 Time of EKG reading by physician:: 23:10 EKG Read and Signed by:: Stan Fields EKG Interpretation (*Must complete 3 of following elements*): Abnormal Rate: 81 Rhythm: wide QRS rhythm [place]: right QRS: other (wide) ST Wave: elevated (ekg discussed with cardiology) - CONSULTS/PCP/HOSPITALIST Notification #1 *Consult/PCP/Hospitalist*: Dr Montoya Time Discussed: 00:01 Consult Disposition: Will see in ED, Admit #2 Consult: Dr Wakefield Time Discussed: 00:21 (cholecystitis) Consult Disposition: other (will consult) Departure - Departure Date of Disposition Decision: 11/17/19 Time of Disposition Decision: 00:01 DIAGNOSIS: SOB (shortness of breath), CHF (congestive heart failure), Pulmonary edema, Pleural effusion, Ascites, Cholecystitis, acute with cholelithiasis, Heart block Disposition: ADMITTED INPATIENT 09 Certified Medical Emergency: Emergent Condition: Fair - Critical Care Note This patient required my direct & personal management of CC.: Yes Total Time (mins): 35 Critical Care Statement: This patient required my direct personal management to treat or rule out processes, the absence of which, could potentiallly result in sudden, clinically significant life or limb threatening deterioration. Attestation - Physician/ ROMAIN Attestation Patient care was provided by Advanced Practice Provider:: No The physician spent face to face time with patient:: Yes Advanced Practice Provider documentation review:: Supervising physician onsite and consulted in the evaluation and care of this patient. The physician did have a face to face encounter with the patient. This chart was documented by the indicated scribe, (Erma Clay, Tung) and accurately reflects the services I performed and decisions made by me, Stan Fields MD, as attested by the provider's signature.
[2019-11-17] MEDS ORDERED: ZOSYN 3.375 GM in NS 50 ML IV ONE (00:19)
[2019-11-17] MEDS ORDERED: LASIX IV SCH (02:00)
[2019-11-17] MEDS ORDERED: TYLENOL PO PRN (03:21)
[2019-11-17] MEDS ORDERED: ZOFRAN IV PRN (03:21)
[2019-11-17 03:23] LABS: MAGNESIUM 2.1 mg/dL (1.5-2.7)
[2019-11-17 06:14] LABS: CALCIUM 9.3 mg/dL (8.8-10.2); CREATININE 1.9 mg/dL (0.7-1.2); POTASSIUM 4.3 mmol/L (3.5-5.1)
--- NOTE | 2019-11-17 06:14 | Diag Imaging Result Doc PS360 ---
EXAM: CHEST-1 VIEW HISTORY: cp TECHNIQUE: Single view COMPARISON: 11/13/2019 FINDINGS: Several heart valves have been replaced. There are sternal wires and a right-sided pacemaker. The heart is mildly prominent. Small moderate-sized left pleural effusion with a small right pleural effusion. There is basilar atelectasis and there may be underlying infiltrates in the left base as well. Mild vascular distention. IMPRESSION: Interval worsening Electronically signed by Agustín Malik 11/17/2019 6:11 AM
--- NOTE | 2019-11-17 06:59 | GENERAL SURGERY CONSULTATION ---
DATE: 11/17/2019 REQUESTING PHYSICIAN: Emergency department. REASON FOR CONSULTATION: Concerning possible cholecystitis. HISTORY OF PRESENT ILLNESS: A 68-year-old gentleman who was recently admitted on 11/11/2019 for shortness of breath and edema. He has had an extensive cardiac history. He was discharged on 11/13/2019 but came back to the emergency department with complaints of shortness of breath and fluid overload. He apparently, at that point, did report some abdominal pain and a CT scan was ordered which showed the potential for cholecystitis. He is not complaining of any abdominal pain right now. He said he had pain a few weeks ago but has not had any pain since then. I was asked to weigh an opinion. PAST MEDICAL HISTORY: Includes hypertension, gout, biventricular pacemaker, atrial fibrillation, heart failure, atrial clot. PAST SURGICAL HISTORY: Includes pacemaker placement, aortic and mitral valve replacement, redo valve replacement. SOCIAL HISTORY: Denies alcohol, tobacco, or illicit drugs. ALLERGIES: None. HOME MEDICATIONS: Reviewed. Of note, he is on Eliquis. REVIEW OF SYSTEMS: A full 14 systems were reviewed and negative except as specified in the HPI. PHYSICAL EXAMINATION: Vital Signs: The patient is currently afebrile. His vital signs are stable. General Examination: No acute distress. Resting. HEENT: Normocephalic, atraumatic. Pupils equal, round, reactive to light. Mucous membranes moist. Oropharynx benign. Neck: Supple. Trachea midline. Cardiovascular: Regular rate and rhythm. Lungs: Grossly clear. Abdomen: Soft. Some mild distention. No tenderness to palpation in the right upper quadrant. No peritoneal signs. Negative Martinez's sign. Extremities: Moves all extremities. Neurologic: Grossly intact. Skin: No signs of jaundice. Vascular: All extremities perfused. LABORATORY DATA: White blood count is normal, hematocrit is 37, platelet count 229,000. INR is 1.16. Bilirubin, AST, ALT, and alkaline phosphatase are all normal. Imaging reviewed. Official report still pending. ASSESSMENT AND PLAN: A 68-year-old gentleman with multiple cardiac issues and possible cholecystitis. 1. Multiple cardiac issues. At this time, defer to the hospitalist and the public improvement inspector about management. He would be high risk for any kind of surgical intervention. 2. Possible cholecystitis. At this time, he does not really have any right upper quadrant tenderness. We will get an ultrasound to evaluate a little bit better but given his multiple cardiac issues, he might be somebody we just treat with antibiotics for right now and manage him symptomatically. Again, he is not having much in the way of symptoms. I will discuss later his case with his daughter, who is the nurse practitioner for the cardiologists. cc: Jose Wakefield MD
--- NOTE | 2019-11-17 07:40 | Diag Imaging Result Doc PS360 ---
EXAM: CT ABDOMEN/PELVIS W/O CONTRAST INDICATION: abdo pain, distension TECHNIQUE: This exam was performed using automated exposure control, adjustment of mA or kV according to patient size, and/or use of iterative reconstruction technique. COMPARISON: None. FINDINGS: There are moderate-sized bilateral pleural effusions, larger on the right. There is adjacent bibasilar atelectasis. There is mild interstitial thickening at the lower lung zones, likely representing mild edema. There is cardiomegaly. There are vague calcified stones in the gallbladder lumen and there is gallbladder wall thickening with mild pericholecystic fluid suspicious for cholecystitis. The liver is very slightly prominent. It is grossly unremarkable by unenhanced CT, otherwise. 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 There are a couple of remaining splenules in the left upper quadrant. There is mild thickening of the adrenal glands likely representing underlying adenomas or hyperplasia. The pancreas, kidneys, and urinary bladder are essentially unremarkable. There is evidence of a prior TURP. There is a small right inguinal hernia that contains only fat. There is inmp-ow-samyfhbt uncomplicated sigmoid colonic diverticulosis. There is no evidence of bowel wall thickening or bowel obstruction. The remainder of the GI tract is essentially unremarkable. There is trace ascites along the paracolic gutters and in the pelvis. There is mild mesenteric and body wall edema suggesting anasarca. There are spinal degenerative changes. There is no evidence of acute osseous abnormality. IMPRESSION: 1.Cholelithiasis with gallbladder wall thickening and mild pericholecystic edema. Cholecystitis should be considered. 2.Mild anasarca and trace ascites. 3.Bilateral moderate-sized pleural effusions with bibasilar atelectasis and signs of mild interstitial edema at the lung bases. 4.Other incidental/nonacute findings detailed above. Electronically signed by Rock Maier 11/17/2019 7:37 AM
--- NOTE | 2019-11-17 07:49 | EKG Report ---
Test Performed on : 11/17/2019 06:57:39 AM Test Reason : CHF Exac. Blood Pressure : / mmHG Vent. Rate : 081 BPM Atrial Rate : 267 BPM P-R Int : 000 ms QRS Dur : 198 ms QT Int : 478 ms P-R-T Axes : 000 195 067 degrees QTc Int : 555 ms Ventricular-paced rhythm Abnormal ECG When compared with ECG of 16-NOV-2019 23:10, (Unconfirmed) Electronic ventricular pacemaker has replaced Wide QRS rhythm. Confirmed by Tammy DELVALLE, Deep Andrade ([id number]) on 11/17/2019 9:37:35 AM
--- NOTE | 2019-11-17 07:58 | Diag Imaging Result Doc PS360 ---
EXAM: US GB < RUQ (LIMITED) - 11/17/2019 HISTORY: evaluate for cholecystitis TECHNIQUE: Ultrasound gallbladder COMPARISON: 11/16/2019 CT abdomen/pelvis without contrast FINDINGS: There is some sludge in the gallbladder. There are no discrete shadowing gallstones identified. The gallbladder gay are thickened up to 7 mm. There is possibly mild gallbladder wall edema. There is no substantial pericholecystic fluid seen. The common bile duct is normal caliber at 4-5 mm. There are no abnormalities of the liver or right kidney identified. The pancreas is obscured by bowel gas artifacts. IMPRESSION: Some sludge in gallbladder. No discrete shadowing gallstones. Thickened gallbladder gay up to 7 mm, with possible mild wall edema. Cholecystitis cannot be excluded. If further imaging evaluation is desired, nuclear medicine HIDA scan could be considered. Normal caliber common bile duct at 4-5 mm. Electronically signed by Maciej Mata 11/17/2019 7:55 AM
--- NOTE | 2019-11-17 08:22 | Diag Imaging Result Doc PS360 ---
EXAM: CHEST-PORTABLE INDICATION: SOB TECHNIQUE: One view COMPARISON: 11/16/2019 FINDINGS: There is evidence of pulmonary venous congestion and mild interstitial edema with a basilar predominance that is essentially stable. Bilateral pleural effusions, larger on the left are unchanged. No new consolidation is identified. Cardiac silhouette is stable. IMPRESSION: Stable chest. Electronically signed by Rock Maier 11/17/2019 8:19 AM
[2019-11-17] MEDS: ZOSYN 2.25 GM in NS 50 ML IV SCH ×3 (08:25→20:19)
[2019-11-17] MEDS: VITAMIN C PO SCH (08:26)
[2019-11-17] MEDS: ZYLOPRIM PO SCH (08:26)
[2019-11-17] MEDS: MAG-OX PO SCH (08:26)
[2019-11-17] MEDS: CARDURA PO SCH (08:26)
[2019-11-17] MEDS: COREG PO SCH ×2 (08:26→20:19)
[2019-11-17 08:42] LABS: ALB/GLOB RATIO 1.2; ALBUMIN 3.5 g/dL (3.5-5.0); DIRECT BILIRUBIN 0.3 mg/dL (0.00-0.20); TOTAL BILIRUBIN 0.66 mg/dL (0.20-1.00); TOTAL PROTEIN 6.5 g/dL (6.3-8.3)
--- NOTE | 2019-11-17 08:43 | HISTORY AND PHYSICAL ---
PRIMARY CARE PROVIDER: The [facility]. TABLE SAW OPERATOR: Dr. An at [facility]. DATE AND TIME: 11/17/2019 at 0130. CHIEF COMPLAINT: Shortness of breath. HISTORY OF PRESENT ILLNESS: Mr. Bailye is a 68-year-old male with a history of multiple cardiac issues. He does have a history of congestive heart failure, aortic and mitral valve replacement, atrial fibrillation, pacemaker placement. He was just recently admitted and discharged from our facility for a CHF exacerbation and during this time, they also did find a left atrium appendix thrombus. He was already on Eliquis at the time that this thrombus was found. He has since been placed on Lovenox b.i.d. He was just discharged from our facility on November 12. The patient reports that starting on the night of the just 2 days after he was discharged, he did begin to have worsening swelling, weight gain and worsening shortness of breath. He states that the night of the was quite rough for him and the next day his shortness of breath continued to worsen. Due to this, he did decide present to the ER for further evaluation. He does report orthopnea, paroxysmal nocturnal dyspnea, increased swelling. He also reports a weight gain of 6 pounds since he was discharged from the hospital. His daughter is Isabella Mullins. She is a PA for the Cardiology group here at [facility]. She is very knowledgeable about his past medical history and current cardiac complications. She states he has been receiving Lovenox subcutaneously twice daily. She also reports they did increase his Coreg just in the last few days to 12.5 mg p.o. b.i.d. Also, since he has had worsening shortness of breath and swelling, they have increased his Lasix doses. He did previously take 40 mg once p.o. daily, though they have bumped this up to twice a day and 1 day did actually give him a total of I believe it was 120 mg of Lasix, though he does not have much urine output. The patient denies any difficulty urinating. He is able to urinate, though total yesterday so far, since before he arrived to the hospital, he did have out approximately 1100 mL of urine. Since arriving to the hospital, he has put out approximately 400 mL of urine. He denies any dizziness or headache. He denies any chest pain. He has reported a little bit of a cough. He states this can be productive at times with some clear sputum but he states this has only gotten worse since his shortness of breath has worsened. He does not wear continuous oxygen at home, though has stated that since arriving to the ER and being placed on oxygen, that he feels like this is helping him and that his shortness of breath has improved. He denies any abdominal pain at present. He denies any nausea, vomiting, or diarrhea. Reports that he has had a bowel movement recently within the last day. He denies any hematochezia or melena. He denies any dysuria. Other than the swelling in his bilateral lower extremities, he denies any other pain, tingling, or swelling in extremities. The patient did state approximately 2 weeks ago that 2 different times after taking his medication that he did have right upper quadrant abdominal pain that did radiate to his back. He states this happened twice 2 days in a row and then subsided and has not occurred again. He denies any previous known history of any gallbladder complications. Though upon examination, the patient did have a positive Amrtinez sign, though other than this, is not overtly tender in the right upper quadrant, is not reporting any pain. Of note, he was noted to have elevated creatinine of 1.7 with a GFR of 40, though according to his daughter, his previous creatinine was 1.8 at the time of discharge. His proBNP is 8108. CK 49, troponin 48, magnesium 2.1. EKG showed wide QRS rhythm with a right superior axis deviation at a rate of 81 with a QTc of 558. He did have a chest x-ray performed which did show a small to moderate-sized left pleural effusion with a small right pleural effusion. There was some basilar atelectasis and there may be an underlying infiltrate in the left base as well. There was some mild vascular distention. The impression was interval worsening. A CT abdomen and pelvis without IV contrast was performed which did show suspect acute cholecystitis. There was mild ascites, moderate bilateral pleural effusions and cholelithiasis. The patient has been placed for inpatient admission. REVIEW OF SYSTEMS: A 14 point review of systems was conducted with the patient and all were negative except for pertinent positives mentioned in the above HPI. PAST MEDICAL HISTORY: 1. Aortic and mitral valve replacement, bioprosthetic in 2017 at [facility], though he did undergo a redo aortic valve replacement and mitral replacement, both bioprosthetic, on 08/31/2019. 2. History of heart failure. 3. History of postoperative atrial fibrillation, status post EILEEN cardioversion. 4. Dual chamber Medtronic PPM. 5. Gout. 6. Hypertension. 7. History of endocarditis. PAST SURGICAL HISTORY: As stated above, which includes pacemaker placement, a history of aortic and mitral valve replacement with bioprosthetic initially in 2016, though he had a redo aortic and mitral valve replacement in August 2019. SOCIAL HISTORY: The patient has no known history of alcohol, tobacco, or illicit drug use. He is . He lives with his . He does have children who are very active in his care. His daughter is Isabella Mullins. She is a PA for the Cardiology group here at [facility]. FAMILY HISTORY: Positive for his mother passing away at age 90. She was not known to have any medical problems. His father had a history of esophageal cancer and at age 65. ALLERGIES: Patient has no known allergies, though there is a history of reported intolerance to Coumadin due to it exacerbating his gout. HOME MEDICATIONS: 1. Allopurinol 100 mg p.o. daily. 2. Vitamin C 1000 mg p.o. daily. 3. Coreg 12.5 mg p.o. b.i.d. 4. Cardura 2 mg p.o. daily. 5. Lovenox 110 mg subcutaneously q.12 hours. 6. Lasix 40 mg p.o. daily. 7. Cozaar 50 mg p.o. daily. 8. Magnesium 250 mg p.o. daily. 9. Klor-Con 10 mEq p.o. daily. DIAGNOSTIC AND LABORATORY DATA: 1. White blood cell count is 10,120, hemoglobin 11.5, hematocrit 37, platelet count is 292,000. PT 15, INR 1.16, PTT is 37.2. Sodium 139, potassium 4.5, chloride 98, serum bicarb of 29, BUN 33, creatinine 1.7, GFR 40, glucose 113, calcium 9.7, magnesium 2.1. Liver function tests within normal limits. CK 49, troponin T high-sensitivity is 48. ProBNP is 8108. Plasma lactate 1.3 with a repeat of 1. 2. EKG showed wide QRS rhythm with right superior axis deviation and nonspecific intraventricular block at a rate 81 with a QTc of 548. 3. Chest 1 view showed interval worsening. There was a small to moderate-sized left pleural effusion with a small right pleural effusion. There was basilar atelectasis and there may be underlying infiltrate in the left base as well. There is mild vascular distention. 4. CT abdomen and pelvis without IV contrast showed cholelithiasis with mild pericholecystic fluid suspicious for acute cholecystitis. There was mild ascites. There were moderate bilateral pleural effusions. PHYSICAL EXAMINATION: VITAL SIGNS: Temperature 98.6 degrees, heart rate 82, respirations 20, blood pressure is 139/69, oxygen saturation is 97% on nasal cannula at 2 L. GENERAL: Mr. Bailey is a very pleasant 68-year-old male. He was resting in the ER stretcher. He is in no acute distress. He was awake, alert, and able to answer questions appropriately. HEENT: Head is atraumatic, normocephalic. Pupils are equal, round, reactive to light, were 3 mm bilaterally and brisk. Oral mucosa is moist. Oropharynx was clear. NECK: Supple. Trachea midline. There is no overt JVD noted. CARDIOVASCULAR: Patient does have a murmur noted though no other gallops or rubs appreciated. He does have a regular rate and rhythm at this time. PULMONARY: The patient has symmetrical chest expansion bilaterally. Lung sounds were clear to auscultation in bilateral upper lung patrick, though he was slightly diminished in bilateral bases. ABDOMEN: Soft, nontender upon normal palpation. He does appear to be slightly distended though. He did have a positive Martinez sign. Bowel sounds were present in all 4 quadrants, were normoactive. EXTREMITIES: No cyanosis noted. The patient did have edema present in bilateral lower extremities. This did extend from just inferior to his knee down bilaterally. He did have pitting edema approximately 1+ noted at the level of his ankles down, though radial and pedal pulses were 2+ bilaterally. Pulse, motor and sensory is intact in all extremities. INTEGUMENTARY: Patient's skin is pink, warm, and dry. NEUROLOGICAL: Patient is alert and oriented to person, place, time, and situation. There were no focal neurological deficits noted. ASSESSMENT AND PLAN: 1. Acute on chronic congestive heart failure exacerbation. For this, we have increased the patient's Lasix to 80 mg IV q.12 hours. We will do strict intake and output. We will do daily weight. The patient is n.p.o. at this time until he is evaluated by Surgery as well. We will continue his other regularly prescribed cardiac medications including his Cardura and Coreg. We also will continue with a series of cardiac enzymes and repeat EKG in the morning as well, though the patient is denying any chest pain at this time. His respiratory status has improved. His oxygen saturations are maintaining adequate on nasal cannula at 2 L. We have placed a consult with Cardiology. We will await their evaluation and further recommendations for management. 2. A recent left atrium appendix thrombus. We will continue with the patient's previously prescribed treatment for this of anticoagulant of Lovenox 1 mg/kg q.12 hours. As mentioned above, we have placed a Cardiology consult. 3. Cholelithiasis with possible cholecystitis. Dr. Wakefield with Surgery has been made aware of the patient. Though he is not reporting any abdominal pain at this time, he did have a positive Martinez sign, though other than this, does not have any other symptoms. He is not having any pain, nausea, vomiting, or diarrhea. Though we will keep him n.p.o. at this time, we have placed him on antibiotic coverage with IV Zosyn. This has been renally dosed. Dr. Wakefield with Surgery has evaluated the patient and has added on a gallbladder ultrasound. We will await results this study and follow recommendations of Dr. Wakefield, though at this time, the patient is not likely a surgical candidate due to his other cardiac complications. 4. History of aortic and mitral valve replacement. 5. Chronic kidney disease. At this time, the patient does appear to be just slightly above his baseline. We will continue to monitor this closely given that we are diuresing him with Lasix at this time, we will avoid nephrotoxic medications. We will renally dose medicines as necessary. 6. Hypertension. We have continued his regularly prescribed antihypertensive medications. 7. Deep vein thrombosis prophylaxis is being provided with previously mentioned Lovenox 1 mg/kg subcutaneous q.12 hours. The patient has been placed in the PVC unit for close monitoring. He will be on continuous cardiac telemetry. We will do frequent vital signs, daily weights. He is n.p.o. except for medications until evaluated by Surgery. We are going to do a series of cardiac enzymes and we will repeat a BMP, magnesium later on this morning as well. Further orders and recommendations pending hospital course, diagnostic studies, and physician evaluation. Dictated by FORREST Dawn for Meng Montoya MD I have performed a face to face diagnostic evaluation. Labs/xrays reviewed. Exam- Chest- rales, CV- regular, Abd- soft, diffuse tenderness. A/P- CHF exaceration, possible cholecystitis- Admit, diuresis with lasix, surgery consult. Dr. Montoya cc: Meng Montoya MD [facility]
--- NOTE | 2019-11-17 09:19 | PROGRESS NOTE ---
DATE: 11/17/2019 SUBJECTIVE: The patient has been recently discharged due to congestive heart failure exacerbation and we found out that this patient had a left atrium appendix thrombus. He was discharged home and we followed the recommendations of Cardiology Department regarding treatment. He was getting Lovenox 1 mg/kg every 12 hours. He was doing fine during the weekend, but Saturday night he started having some shortness of breath and he noticed also that his weight was going up. Yesterday, he was more short of breath that was worse with physical activities, so he decided to come to the emergency department. He seems to be better today after getting Lasix IV. Cardiology Department and Surgery Department have been consulted. Surgery will see the patient because of the possibility of cholecystitis, but he is not getting any kind of abdominal pain at this moment. I do not think he will get any kind of surgery during this hospitalization, but I will wait for Surgery Department recommendations. OBJECTIVE: Vital Signs: Temperature 97.7 degrees, pulse 85, respiratory rate 18, blood pressure 123/50, oxygen saturation 100% on 2 L of nasal cannula. HEENT: Head normocephalic, no trauma. PERRLA. Neck: Supple. He does have some JVD. Central trachea. Chest: Some crepitus and mild crackles at the bases. Abdomen: Soft, nontender, nondistended. No hepatosplenomegaly. Extremities: There is 2+ lower extremity edema. No clubbing. No cyanosis. Neurological: The patient is awake, alert. He is hard of hearing. He is oriented x3. LABORATORY DATA: Sodium 139, potassium 4.3, chloride 98, bicarbonate 32, BUN 33, creatinine 1.9, glucose 124, calcium 9.3. AST 21, ALT 16, alkaline phosphatase 97. ASSESSMENT AND PLAN: 1. Congestive heart failure exacerbation. I will continue with Lasix twice a day. I will decrease the dose from 80 to 40 because of his chronic kidney disease and also a little bit increase of his creatinine. I requested strict intake and output as well. I will wait for Cardiology's recommendations as well. 2. Recent left atrium appendix thrombus. Continue with Lovenox. 3. Cholelithiasis with possible cholecystitis. He is not having any kind of pain. He has an abdominal ultrasound done that showed some sludge in the gallbladder, but apparently no gallstones, with possible mild wall edema. 4. History of aortic and mitral valve replacement. Aware. 5. Chronic kidney disease, slightly above his baseline. I have decreased the dose of the Lasix from 80 twice a day to 40 twice a day and I will wait for Cardiology's recommendations. 6. Hypertension. Continue with the same management. 7. Deep vein thrombosis prophylaxis with Lovenox twice a day. cc: Pranay Mishra MD
[2019-11-17] MEDS ORDERED: DOPAMINE 400 MG/D5W 400 MG/500 ML IV.SOLN IV SCH (10:00)
[2019-11-17] MEDS: DOBUTAMINE 500/D5W 500 MG/250 ML IV.SOLN IV SCH ×2 (11:29→23:11)
[2019-11-17] MEDS ORDERED: LOVENOX SUBQ SCH (11:45)
--- NOTE | 2019-11-17 15:44 | CARDIOLOGY CONSULTATION ---
DATE: 11/17/2019 HISTORY OF PRESENT ILLNESS: Mr. Bailey is admitted with congestive heart failure. He is a 68- year-old, gentleman with multiple cardiac issues. He was recently admitted with congestive heart failure and on 11/11/2019, subsequently discharged home. Within 3 days of leaving our facility, he had noticed increasing shortness of breath with decreasing urine output associated with orthopnea. Also has had paroxysmal nocturnal dyspnea. He denies chest pain. There is no history of fevers. There is no history of mucoid or mucopurulent expectoration. He is on anticoagulation therapy. There are no bleeding diatheses. He has also noticed increasing abdominal swelling and has a weight gain of 6 pounds since he was recently discharged from the hospital. At the time of discharge, he was sent home on 11/13/2019 with the following medications: Lasix 40 mg twice daily, Lovenox 1 mg/kg subcutaneously twice daily, Coreg 12.5 b.i.d., and Cozaar 50 mg a day. In the interim, over the night before his admission, given his decreasing urine output, I had increased the dosage of Lasix and held his Cozaar in the event that it was JEAN-PAUL related decrease in renal function as well. However, he progressively worsened and he was brought by EMS to [facility] and was admitted. He had significant abdominal distention. He had a CT scan done of his abdomen which revealed cholelithiasis with gallbladder thickening with anasarca and ascites, with bilateral moderate pleural effusion, bibasilar atelectasis, and pulmonary edema. Surgery was consulted. As far as the gallbladder wall thickening is concerned, it is probably secondary to his congestive heart failure. Patient, during his recent hospitalization, was noted to be in atrial fibrillation. That was interrogated. He has a Medtronic device. He has been in atrial fibrillation since his last cardioversion at [facility] in August 2019. We had started him on IV amiodarone and planned for a cardioversion during his recent hospitalization. However, he has a left atrial appendage thrombus in spite of being on Eliquis for 4 week and he had been on Eliquis prior to that. There was an interruption of 1 week for his PICC line removal. Otherwise, he had been anticoagulated with Coumadin and subsequently on to Eliquis. He is intolerant to Coumadin as he has severe gout with Coumadin which is well documented in his situation. He was discharged then on Lovenox. There is no history of syncope. REVIEW OF SYSTEMS: A 14-point review of systems was done. GI System: There is no history of hematemesis or melena. Central Nervous System: No focal weakness to suggest a CVA or TIA. System: There is no dysuria or hematuria. Respiratory System: As above. PAST MEDICAL HISTORY: 1. Aortic and mitral valve bioprosthetic replacement in July 2016. 2. Subsequent extensive treatment for culture-negative endocarditis. 3. The patient underwent a redo aortic and mitral valve replacement, both bioprosthetic, on 08/31/2019 at [facility]. 4. Postoperatively, the patient had atrial fibrillation, complete heart block, was cardioverted and had a dual-chamber Medtronic device placed. 5. History of heart failure. 6. Recent echocardiogram revealed ejection fraction of 20 to 25 percent with severe LV dysfunction. The transesophageal echocardiogram revealed smoke and clot in the left atrial appendage. Cardioversion was obviously not performed. 7. Gout. 8. Hypertension. ALLERGIES: The patient cannot tolerate Coumadin as it significantly exacerbates his gout. He is not allergic to any other medications. SOCIAL HISTORY: He does not smoke, does not drink. The patient is resident locally with his and family support. FAMILY HISTORY: Positive for his mother passing away at 90. She was not known to have any medical problems. Father had esophageal cancer, at 65. HOME MEDICATIONS: As listed above. PHYSICAL EXAMINATION: Vital Signs: Blood pressure 117/72. Jugular venous pressure was elevated. Respiratory rate was 24. First and second heart sounds were heard. There was an S3 gallop. Respiratory System: Dullness at the base but bibasilar inspiratory crepitations. Abdomen was distended. Examination of his extremities revealed pitting pedal edema. HEENT: Atraumatic, normocephalic. Pupils were equal and reacting to light. Examination of his neck, no lymphadenopathy, no thyromegaly. Trachea was central. LABORATORY EXAMINATION: Sodium 139, potassium 4.3, BUN 33, creatinine 1.7 increased to 1.9 today. Cardiac enzymes negative. Troponin was negative. ProBNP was 8108. During his recent last hospitalization, his proBNP was 8233. At discharge, his proBNP was 5256. CT scan and chest x-ray as above. Abdominal ultrasound, some sludge in the gallbladder. No discrete gallstones, thickened gallbladder wall. Chest x-ray, bilateral pleural effusions, heart failure. ASSESSMENT: Mr. Zac Bailey is a 68-year-old, gentleman who has undergone aortic and mitral valve replacement, bioprosthetic, in 2017. Had redo bioprosthetic aortic and mitral valve replacement on 08/31/2019 at [facility] and has a dual-chamber pacemaker Medtronic device. He was recently admitted with congestive heart failure. Has severe worsening of his left ventricular dysfunction with an ejection fraction of 20 to 25 percent. Post discharge from [facility] ,his ejection fraction was 50 to 55 percent. In addition, recent transesophageal echocardiogram revealed a left atrial thrombus. PLAN: 1. His rn hemo dialysis, Dr. An, is aware of the need for upgrading to Bi-V AICD placement and the plan was to be seen by Dr. An. However, in a couple of days since discharge, he had worsening congestive heart failure and is readmitted. 2. As far as anticoagulation therapy is concerned, he had an LA clot in spite of being on Eliquis. As a result, he is on Lovenox 1 mg/kg subcutaneously twice daily, and we will continue with the Lovenox. 3. He had significant drop in his urine output with ascites and worsening congestive heart failure. We will put him on inotrope with a dopamine drip at 3 mcg/kg per minute in addition to dobutamine for inotrope and increasing urine output. He has so far received Lasix 120 mg and currently today, he will get 40 mg IV twice daily. If his urine output drops, I will increase it to 80 mg twice daily. 4. Given his recurrent recent admission, I will discuss with the [facility] rn hemo dialysis to have him transferred to the [facility] in [place] so that he can be evaluated by electrophysiology services for an upgrade to a Bi-V AICD given his severe LV dysfunction, which I suspect is secondary to persistent RV pacing at 98% of the time. 5. He also has an LA clot. We will continue with the Lovenox for the time-being and until he is evaluated at the [facility] or [facility]. 6. As far as his atrial fibrillation is concerned, he would probably need AV node ablation or pulmonary vein isolation and ablation there of which obviously will be at the best discretion of Dr. An, electrophysiology services at [facility]. 7. I am not starting him on JEAN-PAUL inhibitors. He has worsening of his renal function. At discharge, it was 1.7 and now it is 1.9, his creatinine. We will leave him on beta-blockers at the present time. cc: Kashmir Haro MD
[2019-11-17] MEDS: LASIX IV SCH (17:13)
[2019-11-17] MEDS: LOVENOX SUBQ SCH (22:58)
[2019-11-18] MEDS: ZOSYN 2.25 GM in NS 50 ML IV SCH ×4 (03:33→20:38)
[2019-11-18] MEDS: LASIX IV SCH ×2 (05:21→18:19)
[2019-11-18 05:48] LABS: BASO# 0.03 X1000 (0.0-0.2); BASO% 0.2 % (0.0-0.8); EOS# 0.42 X1000 (0.0-0.7); EOS% 3.3 % (0.0-10.0); HEMATOCRIT 33.5 % (42.0-52.0); HEMOGLOBIN 10.5 g/dL (14.0-18.0); LYMPH# 1.32 X1000 (1.2-3.4); LYMPH% 10.4 % (20.5-51.1); MCH 31.1 PG (27-31); MCHC 31.3 g/dL (33-37); MCV 99.1 FL (81-99); MONO# 1.51 X1000 (0.11-0.59); MONO% 11.9 % (1.7-9.3); MPV 11.7 FL (7.4-10.4); NEUT# 9.41 X1000 (1.4-6.5); NEUT% 74.2 % (42.2-75.2); PLT 268 X1000 (130-400); RBC 3.38 XMIL (4.7-6.1); RDW 14.6 % (11.5-14.5); WBC 12.69 X1000 (4.8-10.8)
--- NOTE | 2019-11-18 06:00 | GENERAL SURGERY PROGRESS NOTE ---
DATE: 11/18/2019 SUBJECTIVE: Patient seems to be doing okay. Reviewed his ultrasound from yesterday with potential for cholecystitis although he does not have any pain. OBJECTIVE: Vital Signs: Patient is currently afebrile. Vital signs are stable. General: No acute distress. HEENT: Normocephalic, atraumatic. Pupils equal, round, and reactive to light. Mucous membranes moist. Oropharynx benign. Neck: Supple. Trachea midline. Cardiovascular: Regular rate and rhythm. Lungs: Grossly clear. Abdomen: Soft and nontender. Extremities: Moves all extremities. Neurologic: Grossly intact. Skin: No signs of jaundice. Vascular: All extremities perfused. LABORATORY: Pending this morning. ASSESSMENT AND PLAN: A 68-year-old gentleman with multiple cardiac issues and possible cholecystitis. 1. Multiple cardiac issues. At this time, defer to the cargo and container inspector and the hospitalist. 2. Possible cholecystitis. At this time, he does not seem to be hurting. I would recommend just treating him conservatively with antibiotics for right now. cc: Jose Wakefield MD
[2019-11-18 06:23] LABS: ALBUMIN 3.2 g/dL (3.5-5.0); CALCIUM 8.7 mg/dL (8.8-10.2); CREATININE 1.7 mg/dL (0.7-1.2); POTASSIUM 3.4 mmol/L (3.5-5.1); TOTAL BILIRUBIN 0.85 mg/dL (0.20-1.00); TOTAL PROTEIN 6.4 g/dL (6.3-8.3)
--- NOTE | 2019-11-18 06:35 | Diag Imaging Result Doc PS360 ---
EXAM: CHEST-PORTABLE 11/18/2019 HISTORY: dyspnea TECHNIQUE: AP portable at 0553 COMMENT: There is partial opacification of the left lower lobe. There is blunting of the right costophrenic angle. Compared to 11/17/2019 this has not changed. IMPRESSION: Bilateral pleural effusions. Atelectasis versus pneumonia left lower lobe. Electronically signed by Joao Garcia 11/18/2019 6:32 AM
--- NOTE | 2019-11-18 07:19 | EKG Report ---
Test Performed on : 11/18/2019 06:14:38 AM Test Reason : dyspnea, CHF Blood Pressure : / mmHG Vent. Rate : 095 BPM Atrial Rate : 340 BPM P-R Int : 000 ms QRS Dur : 174 ms QT Int : 350 ms P-R-T Axes : 032 -44 140 degrees QTc Int : 439 ms Atrial flutter. with variable AV block. with frequent ventricular-paced complexes and with premature ventricular or aberrantly conducted complexes. Left axis deviation Left bundle branch block Abnormal ECG When compared with ECG of 17-NOV-2019 06:57, Vent. rate has increased BY 14 BPM Confirmed by Tammy DELVALLE, Deep Andrade ([id number]) on 11/18/2019 9:08:16 AM
[2019-11-18] MEDS ORDERED: KLOR-CON PO ONE (07:24)
[2019-11-18] MEDS: CARDURA PO SCH (08:37)
[2019-11-18] MEDS: ZYLOPRIM PO SCH (08:37)
[2019-11-18] MEDS: MAG-OX PO SCH (08:37)
[2019-11-18] MEDS: COREG PO SCH ×2 (08:38→20:38)
[2019-11-18] MEDS: VITAMIN C PO SCH (08:44)
[2019-11-18] MEDS ORDERED: ZAROXOLYN PO ONE (11:33)
[2019-11-18] MEDS ORDERED: DOPAMINE 800 MG/D5W 800 MG/250 ML IV.SOLN IV SCH (11:45)
[2019-11-18] MEDS: LOVENOX SUBQ SCH ×2 (11:45→23:18)
[2019-11-18] MEDS ORDERED: LASIX IV ONE (12:03)
[2019-11-18] MEDS: DOBUTAMINE 500/D5W 500 MG/250 ML IV.SOLN IV SCH (12:46)
--- NOTE | 2019-11-18 13:25 | PROGRESS NOTE ---
DATE: 11/18/2019 SUBJECTIVE: Patient seems to be about the same compared with yesterday. He has been placed by Cardiology Department on dobutamine and dopamine. Also, he received an extra dose of Lasix and metolazone today. I have replaced his potassium earlier today. We will continue monitoring his in and outs. So far, we have a negative balance of 900 mL. PHYSICAL EXAMINATION: Vital Signs: Temperature 97.9 degrees, pulse 82, respiratory rate 16, blood pressure 118/56, and oxygen saturation 97% on room air. HEENT: Head normocephalic. No trauma. PERRLA. Neck: Supple. He does have some JVD. Central trachea. Lungs: Chest with some crepitus and mild crackles at the bases. Abdomen: Soft, nontender, and nondistended. No hepatosplenomegaly. Extremities: 2+ lower extremity edema. No clubbing. No cyanosis. Neurological: This patient is awake and alert. He is hard of hearing. He is oriented x3. LABORATORY: WBC 12.6, hemoglobin 10.5 hematocrit 33.5, and platelets 268,000. Sodium 140, potassium 3.4, chloride 99, bicarbonate 28, BUN 27, creatinine 1.7, glucose 128, calcium 8.7, and albumin 3.2. ASSESSMENT AND PLAN: 1. Congestive heart failure exacerbation. I will continue following the recommendations of Cardiology Department. He received an extra dose of metolazone and Lasix today. He is getting Lasix twice a day IV 40 mg. I will continue to monitor this patient closely. He has been placed on dopamine and dobutamine. 2. Recent left atrium appendix thrombus, continue with Lovenox. 3. Cholelithiasis with possible cholecystitis. He is not in pain. Surgery Department has recommended to continue with antibiotics. I do not think he needs surgery during this hospitalization. 4. History of aortic and mitral valve replacement, aware. 5. CKD, back to his baseline. 6. Hypertension. Continue the same management. 7. Deep vein thrombosis prophylaxis. He is getting Lovenox twice a day. 8. Atrial fibrillation. He will probably need an AV node ablation or pulmonary vein isolation, and ablation with electrophysiology. 9. 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 Aware. cc: Pranay Mishra MD
[2019-11-19] MEDS: DOBUTAMINE 500/D5W 500 MG/250 ML IV.SOLN IV SCH (01:18)
[2019-11-19] MEDS: ZOSYN 2.25 GM in NS 50 ML IV SCH ×3 (02:10→14:29)
[2019-11-19] MEDS: LASIX IV SCH (05:37)
[2019-11-19 06:08] LABS: BASO# 0.09 X1000 (0.0-0.2); BASO% 0.8 % (0.0-0.8); EOS# 0.77 X1000 (0.0-0.7); HEMOGLOBIN 10.8 g/dL (14.0-18.0); IMM GRAN# 0.02 X1000 (0.0-0.04); IMM GRAN% 0.2 % (0.0-0.5); LYMPH# 1.92 X1000 (1.2-3.4); LYMPH% 17.5 % (20.5-51.1); MCH 30.3 PG (27-31); MCHC 30.9 g/dL (33-37); MONO# 1.44 X1000 (0.11-0.59); MONO% 13.1 % (1.7-9.3); MPV 11.2 FL (7.4-10.4); NEUT# 6.74 X1000 (1.4-6.5); NEUT% 61.4 % (42.2-75.2); PLT 281 X1000 (130-400); RBC 3.57 XMIL (4.7-6.1); RDW 14.5 % (11.5-14.5); WBC 10.98 X1000 (4.8-10.8)
--- NOTE | 2019-11-19 06:37 | GENERAL SURGERY PROGRESS NOTE ---
DATE: 11/19/2019 SUBJECTIVE: Patient seems to be doing okay. No right upper quadrant pain. OBJECTIVE: Vital Signs: Patient is currently afebrile. His vital signs are stable. General: No acute distress. HEENT: Normocephalic, atraumatic. Pupils equal, round, and reactive to light. Mucous membranes moist. Oropharynx benign. Neck: Supple. Trachea midline. Cardiovascular: Regular rate and rhythm. Lungs: Grossly clear. Abdomen: Soft and nontender. Extremities: Moves all extremities. Neurologic: Grossly intact. Skin: No signs of jaundice. Vascular: All extremities perfused. LABORATORY: Reviewed from yesterday. White blood cell count did slightly increase to 12. Remainder of labs reviewed. ASSESSMENT AND PLAN: A 68-year-old gentleman with cardiac issues and possible cholecystitis. 1. Cardiac issues. At this time, defer to the hospitalist and Cardiology Department. 2. Possible cholecystitis. At this time, he is without symptoms so I would recommend holding off on any kind of surgical intervention. I would not be opposed to continuing antibiotics just to play it safe, but no surgical intervention planned. cc: Jose Wakefield MD
[2019-11-19 06:40] LABS: CALCIUM 9.1 mg/dL (8.8-10.2); CREATININE 1.7 mg/dL (0.7-1.2); MAGNESIUM 1.8 mg/dL (1.5-2.7); POTASSIUM 3.3 mmol/L (3.5-5.1)
--- NOTE | 2019-11-19 06:52 | Diag Imaging Result Doc PS360 ---
EXAM: CHEST-PORTABLE 11/19/2019 HISTORY: dyspnea TECHNIQUE: AP portable at 0531 COMMENT: There is blunting of the costophrenic angles bilaterally. There are aortic and mitral valve prostheses. There is slightly increased opacity of the right base compared to 11/18/2019. IMPRESSION: Bilateral pleural effusions. Mild pulmonary edema. Electronically signed by Joao Garcia 11/19/2019 6:50 AM
[2019-11-19] MEDS ORDERED: KLOR-CON PO ONE (07:23)
[2019-11-19] MEDS: COREG PO SCH (08:17)
[2019-11-19] MEDS: CARDURA PO SCH (08:17)
[2019-11-19] MEDS: VITAMIN C PO SCH (08:17)
[2019-11-19] MEDS: MAG-OX PO SCH (08:17)
[2019-11-19] MEDS: ZYLOPRIM PO SCH (08:17)
[2019-11-19] MEDS ORDERED: ZAROXOLYN PO ONE (12:00)
[2019-11-19] MEDS: LOVENOX SUBQ SCH (12:04)
[2019-11-19] MEDS ORDERED: LASIX IV ONE (12:30)
--- NOTE | 2019-11-19 13:45 | PROGRESS NOTE ---
DATE: 11/19/2019 SUBJECTIVE: The patient seems to be feeling better today. We have a negative balance of 3.6 L. He was placed on dobutamine and dopamine, that likely will be stopped today. We will continue with Lasix. His kidney function is stable. OBJECTIVE: Vital Signs: Temperature 98.4 degrees, pulse 86, respiratory rate 17, blood pressure 94/43, oxygen saturation 97% on room air. HEENT: Head normocephalic. No trauma. PERRLA. Neck: Supple. He does have some JVD. Central trachea. Lungs: Some crepitus at the bases. Mild crackles at the bases as well. Abdomen: Soft, nontender, nondistended. No hepatosplenomegaly. Extremities: There is 2+ lower extremity edema. No clubbing. No cyanosis. Neurological Examination: The patient is awake and alert. He is oriented x3. No focal deficits. Laboratory: WBC 10.9, hemoglobin 10.8, hematocrit 35, platelets 281,000. Sodium 138, potassium 3.3, chloride 96, bicarbonate 30, BUN 22, creatinine 1.7, glucose 100, calcium 9.1, magnesium 1.8. ASSESSMENT AND PLAN: 1. Congestive heart failure exacerbation. We will continue with the same management and following the recommendations of cardiology department. He was placed on dobutamine and dopamine but likely that will be stopped today. He is getting Lasix intravenously. We will continue to monitor. So far, 3.6 L of fluid have been removed, negative balance. 2. Recent left atrium appendix thrombus. Continue with Lovenox. 3. Cholelithiasis with possible cholecystitis. He is not in pain. Surgery department has recommended to continue with antibiotics. I do not think he needs surgery at this moment. 4. History of aortic and mitral valve replacement, aware. 5. Chronic kidney disease, back to his baseline. 6. Hypertension. Continue with the same management. 7. Deep vein thrombosis prophylaxis. He is on Lovenox twice a day. 8. Atrial fibrillation. He will probably need an atrioventricular node ablation or pulmonary vein isolation and ablation with electrophysiology. All this conversation has been going on between cardiology department and [facility]. 9. 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 Aware. 10. Hypokalemia. I will replace the potassium today. cc: Pranay Mishra MD
[2019-11-19 16:42] VITALS: BP 104/45
--- NOTE | 2019-11-19 20:25 | DISCHARGE SUMMARY ---
ADMISSION DATE: 11/17/2019 DISCHARGE DATE: 11/19/2019 DISCHARGE DIAGNOSES: 1. Decompensated heart failure exacerbation. 2. Recent left atrium appendix thrombus. 3. History of aortic and mitral valve replacement. 4. Chronic kidney disease. 5. Hypertension. 6. Atrial fibrillation. 7. 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 8. Hypokalemia. 9. Severe left ventricular dysfunction with possible asynchrony of his dual-chamber pacemaker. 10. Fluid overload. PROCEDURES PERFORMED: 1. Chest x-ray dated 11/16/2019: Impression; interval worsening, small moderate-sized left pleural effusion with a small right pleural effusion. There is bibasilar atelectasis and possible underlying infiltrates. 2. Abdomen and pelvis CT scan dated 11/24/2019: Impression; cholelithiasis with gallbladder wall thickening and mild pericholecystic edema, cholecystitis should be considered, mild anasarca and trace ascites, bilateral moderate-sized pleural effusion with bibasilar atelectasis and signs of mild interstitial edema at the lung bases. 3. Abdomen ultrasound dated 11/17/2019: Impression; some sludge in the gallbladder, no gallstones. Thickened gallbladder gay up to 7 mm with possible mild wall edema. Cholecystitis cannot be excluded. 4. Chest x-ray dated 11/18/2019: Impression; bilateral pleural effusion, atelectasis versus pneumonia left lower lobe. 5. Chest x-ray dated 11/19/2019: Impression; bilateral pleural effusion, mild pulmonary mild pulmonary edema. HOSPITAL COURSE: A 68-year-old male with a past medical history of multiple cardiac issues including CHF, aortic and mitral valve replacement, atrial fibrillation, pacemaker placement. He was recently discharged from our facility on 11/13/2019. After a few days, he started gaining weight and feeling bad with more shortness of breath and fluid overload. He has been readmitted. He has been reevaluated by Cardiology Department. He was placed on dobutamine and dopamine because of congestive heart failure exacerbation, which actually was decompensated. Initially, he had acute on chronic kidney disease, but then it started to stabilized since the blood pressure was also good. We diuresed this patient and we had a total of a negative balance of 4.2 L. Cardiology Department following this patient closely. His electrolytes were adjusted and actually a conversation with the [place] car worker helper was done and this patient will be transferred today. He will probably have a biventricular pacemaker with defibrillator placed. Probably they will need to do also a EILEEN. He will be discharged today. He will go via ambulance to that place. He seems to be more stable compared to admission, but I do believe he still needs to be treated. During the course of his hospitalization, we were concerned about cholecystitis. The Surgery department following this patient followed this patient closely. We gave him antibiotics. Even though there was some wall thickening, he was not complaining of right upper quadrant pain, so we just kept an eye on that. His vital signs have been stable as well as the laboratory except the creatinine which is elevated but at baseline and the potassium which is low as well as the chloride. He is completely awake and alert and oriented. Again, this patient will be transferred to the [place] for further treatment and management. PHYSICAL EXAMINATION: Vital signs: Temperature 98.4 degrees, pulse 86, respiratory rate 17, blood pressure 94/43, oxygen saturation 97% on room air. HEENT: Head normocephalic. PERRLA. Neck: Supple. No JVD. No masses. Central trachea. Chest: Some crepitus at the bases. Mild crackles at the bases as well. Abdomen: Soft, nontender, nondistended. No hepatosplenomegaly. Extremities: There is 2+ lower extremity edema. No clubbing. No cyanosis. Neurological: The patient is awake alert he is oriented x3. No focal deficits. He is hard of hearing. LABORATORY: WBC 10.9, hemoglobin 10.8, hematocrit 35, platelets 281,000. Sodium 138, potassium 3.3, chloride 96, bicarbonate 30, BUN 22, creatinine 1.7, glucose 100, calcium 9.1. Magnesium 1.8. DISPOSITION: The patient will be transferred today. The medications will be adjusted and re- initiated at the [facility] [facility] coming at the [facility], Cardiology Department already did all the arrangements with the Cardiology service over there. Upon discharge, the patient was in a stable medical condition but again he needs to be getting more treatment. cc: Pranay Mishra MD
== END 2019-11-19 18:33 | disposition short-term general hospital (02) | DRG 291 ==
LOC: ED 22:44 → 2N 11-17 02:23 → SUATTDRO 11-17 02:23
PROVIDERS: ATTEND Internal Medicine